=== PATIENT | female | born 1945 | race Caucasian/White ===

== ENCOUNTER → 2018-02-05 | Outpatient (CLI) | payer OTHER ==
[~2018-02-05] MED LIST: ALPRAZOLAM PO; ALPRAZOLAM0.5 M1 PO; AMLODIPINE PO; ASPIRIN81 MG PO; CARVEDILOL3.125 MG PO; CREON DR 12,001 EACH PO; CRESTOR10 MG; DIOVAN80 MG PO; ESTRADIOL1 MG PO; GLIMEPIRIDE2 MG PO; LEVOTHYROXINE25 MCG PO; LEVOTHYROXINE50 MCG PO; LOPID600 MG PO; LOSARTAN POTAS100 MG PO; METFORMIN HCL500 M2 PO; METFORMIN HCL500 MG PO; MYRBETRIQ25 MG PO; NIFEDIPINE ER30 M1 PO; NITROFURANTOIN100 MG PO; PANTOPRAZOLE SO40 MG PO; PREMARIN0.625 MG PO; PRENATAL VIT PO; TEMAZEPAM PO; [UNRECOGNIZED DRUG - OTHER]
--- NOTE | 2018-02-05 11:52 | Diagnostic Imaging Report ---
PROCEDURE:TOES LEFT MIN 2 VIEWS TECHNIQUE:AP, lateral and oblique views left foot INDICATION:Osteomyelitis of the second digit COMPARISON:None. FINDINGS: Postoperative changes of bunionectomy and hallux valgus repair. Intact hardware. Generalized osteopenia. Healed fracture of the second toe metatarsal mid shaft. No focal erosion or periosteal reaction. Image regional skeleton intact. CONCLUSION: No evidence of acute osteomyelitis. Osteopenia. Dictated by: Clarence Malone M.D. on 02/05/2018 at 11:51 Electronically approved by: Clarence Malone M.D. on 02/05/2018 at 11:51
== END ==
LOC: RAD 11:08
PROVIDERS: ATTEND Internal Medicine Infectious Disease
DX: M86.8X7 Other osteomyelitis, ankle and foot (principal)

== ENCOUNTER → 2018-02-06 | Outpatient (CLI) | payer OTHER | LOC: MRI 08:34 | PROVIDERS: ATTEND Internal Medicine Infectious Disease | DX: M86.8X7 Other osteomyelitis, ankle and foot (principal) ==

== ENCOUNTER → 2018-03-25 | Emergency (ER) | payer OTHER ==
[~2018-03-25] VITALS: Ht 157.5 cm; Wt 67.6 kg
--- OUTSIDE RECORDS SUMMARY | 2018-03-25 10:05 | XMS REPORT | Clinical Summary ---
Author Author [facility] Organization [facility] Address Unknown Phone Unavailable Care Team Providers Care Program Review Director Name Role Phone Leo Dangelo MD PCP Allergies Active Allergy Reactions Severity Noted Date Comments Amoxicillin 04/12/2017 Amoxicillin-Pot Rash Low 07/06/2016 Clavulanate Bacitracin Rash Low 07/06/2016 Hydrocodone Rash Low 07/06/2016 Levofloxacin Hives, Itching High 07/06/2016 Current Medications Prescription Sig. Disp. Refills Start End Date Status Date gemfibrozil (LOPID) 600 Take 600 mg by mouth 2 Active MG tablet (two) times a day before meals. metFORMIN (GLUCOPHAGE) Take 500 mg by mouth Active 500 mg tablet every evening. levothyroxine (SYNTHROID, 25 mg daily 1 06/29/20 Active LEVOXYL) 50 mcg tablet 17 VITAMIN B COMPLEX Take 1 tablet by mouth Active (B-COMPLEX ORAL) every evening. pancrelipase, Take 24,000 units of Active ctknab-jhrqbqwy-rsxvaot, lipase by mouth 3 (three) (CREON) 24,000-76,000 times a day with meals. -120,000 unit capsule,delayed release(DR/EC) capsule pantoprazole (PROTONIX) TK 1 T PO QD 2 11/21/20 Active 40 MG EC tablet 17 NIFEdipine XL (PROCARDIA Take 30 mg by mouth Active XL) 30 MG 24 hr tablet daily. losartan (COZAAR) 100 MG 1/2 tablet bid 0 12/13/19 Active tablet 18 LACTOBACILLUS ACIDOPHILUS Take 1 tablet by mouth Active (PROBIOTIC ORAL) daily. risperiDONE (RisperDAL) Take 1 tablet (0.25 mg 30 tablet 3 01/09/20 Active 0.25 MG tablet total) by mouth nightly. 18 traZODone (DESYREL) 50 MG TAKE 1 TABLET(50 MG) BY 90 tablet 0 Active tablet MOUTH EVERY NIGHT 18 donepezil (ARICEPT) 5 MG TAKE 1 TABLET(5 MG) BY 90 tablet 1 01/23/20 Active tablet MOUTH EVERY NIGHT 18 cefuroxime (CEFTIN) 250 0 01/09/20 Active MG tablet 18 memantine (NAMENDA) 5 MG Take 1 tab by mouth daily 28 tablet 0 Active tablet for seven days then 18 increase to 2 tabs by mouth estradiol (ESTRACE) 1 MG TK 1 T PO QD 5 06/03/20 09/06/20 Discontin tablet 16 17 ued levothyroxine (SYNTHROID, TK 1 T PO D 1 06/29/20 05/04/20 Discontin LEVOTHROID) 50 MCG tablet 16 17 ued CREON 12,000-38,000 TK 1 C PO TID 5 06/05/20 10/15/20 Discontin -60,000 unit 16 17 ued capsule,delayed release(DR/EC) capsule pantoprazole (PROTONIX) TK 1 T PO QD 2 06/22/20 10/15/20 Discontin 40 MG EC tablet 16 17 ued ALPRAZolam (XANAX) 0.5 MG TK .5 T PO QD PRN 0 05/15/20 10/15/20 Discontin tablet 16 17 ued NIFEdipine XL (PROCARDIA Take 30 mg by mouth 2 04/12/20 Discontin XL) 30 MG 24 hr tablet (two) times a day. 17 ued losartan (COZAAR) 100 MG Take 50 mg by mouth 2 10/15/20 Discontin tablet (two) times a day. 17 ued mirabegron (MYRBETRIQ) 25 Take 1 tablet (25 mg 60 tablet 5 01/17/20 09/06/20 Discontin mg tablet extended total) by mouth 2 (two) 17 17 ued release 24 hr times a day. nitrofurantoin, Take 1 capsule (100 mg 30 capsule 3 02/14/20 Discontin macrocrystal-monohydrate, total) by mouth daily for 17 17 ued (MACROBID) 100 MG capsule 120 days. sulfamethoxazole-trimetho Take 1 tablet by mouth 30 tablet 3 02/28/20 03/29/20 prim (BACTRIM SS) 400-80 daily for 30 days. 17 17 mg per tablet NIFEdipine CC (ADALAT CC) Take 30 mg by mouth 2 03/05/20 10/15/20 Discontin 30 MG 24 hr tablet (two) times a day. 17 17 ued nitrofurantoin, Take 1 capsule (100 mg 30 capsule 11 03/16/20 Discontin macrocrystal-monohydrate, total) by mouth daily for 17 17 ued (MACROBID) 100 MG capsule 30 days. sulfamethoxazole-trimetho Take 1 tablet by mouth 2 14 tablet 0 03/29/20 Discontin prim (BACTRIM DS) 800-160 (two) times a day for 7 17 17 ued mg per tablet days. sulfamethoxazole-trimetho 04/01/20 07/17/20 Discontin prim (BACTRIM SS) 400-80 17 17 ued mg per tablet traMADol (ULTRAM) 50 mg Take 1 tablet (50 mg 30 tablet 0 04/20/20 tablet total) by mouth every 6 17 17 (six) hours as needed for moderate pain for up to 7 days. mirabegron (MYRBETRIQ) 25 Take 1 tablet (25 mg 30 tablet 6 04/25/20 05/04/20 Discontin mg tablet extended total) by mouth daily. 17 17 ued release 24 hr VITAMIN B COMPLEX (B Take 1 tablet by mouth 10/15/20 Discontin COMPLEX ORAL) daily. 17 ued sertraline (ZOLOFT) 50 MG Take 1 tablet (50 mg 30 tablet 11 05/04/20 12/14/19 Discontin tablet total) by mouth every 17 18 ued morning. nitrofurantoin TK 1 C PO BID FOR 10 DAYS 0 05/14/20 09/06/20 Discontin (MACRODANTIN) 100 MG 17 17 ued capsule nitrofurantoin, 3 05/02/20 07/17/20 Discontin macrocrystal-monohydrate, 17 17 ued (MACROBID) 100 MG capsule mirabegron (MYRBETRIQ) 25 Take 1 tablet (25 mg 60 tablet 11 06/25/20 10/15/20 Discontin mg tablet extended total) by mouth 2 (two) 17 17 ued release 24 hr times a day. mirabegron 25 mg tablet Take 25 mg by mouth 2 01/03/20 Discontin extended release 24 hr (two) times a day. 18 ued pancrelipase, Take 1 capsule by mouth 01/03/20 Discontin ogvlri-azwlddxn-dqsbwsg, with snacks for snacks. 18 ued (CREOND) 12,000-38,000 -60,000 unit capsule,delayed release(DR/EC) capsule ALPRAZolam (XANAX) 0.5 MG Take 0.25 mg by mouth 12/26/19 Discontin tablet nightly. 18 ued nitrofurantoin, Take 100 mg by mouth 2 10/11/20 10/21/20 macrocrystal-monohydrate, (two) times a day. For 10 17 (MACROBID) 100 MG capsule days,starting on 10/11/2017 traMADol (ULTRAM) 50 mg Take 1 tablet (50 mg 16 tablet 0 10/15/20 tablet total) by mouth every 6 17 17 (six) hours as needed for moderate pain for up to 4 days. sucralfate (CARAFATE) 100 Take 10 mL (1 g total) by 280 mL 0 10/15/20 10/22/20 mg/mL suspension mouth 4 (four) times a 17 17 day for 7 days. ondansetron (ZOFRAN, Take 1 tablet (4 mg 20 tablet 0 10/15/20 HYDROCHLORIDE,) 4 MG total) by mouth every 8 17 17 tablet (eight) hours as needed for nausea or vomiting for up to 5 days. cephalexin (KEFLEX) 500 Take 1 capsule (500 mg 20 capsule 0 11/06/20 11/11/20 MG capsule total) by mouth 4 (four) 17 17 times a day for 5 days. cefdinir (OMNICEF) 300 MG Take 1 capsule (300 mg 10 capsule 0 11/27/19 capsule total) by mouth 2 (two) 17 18 times a day for 5 days. ACCU-CHEK MAUDE PLUS TEST U UTD BID 3 09/07/20 01/03/20 Discontin STRP strip test strips 17 18 ued nitrofurantoin TK 1 C PO BID FOR 10 DAYS 0 10/11/20 12/14/19 Discontin (MACRODANTIN) 100 MG 17 18 ued capsule sulfamethoxazole-trimetho TK 1 T PO BID FOR 10 DAYS 0 11/02/20 Discontin prim (BACTRIM DS) 800-160 17 18 ued mg per tablet cefpodoxime (VANTIN) 200 Take 1 tablet (200 mg 14 tablet 0 12/11/19 12/18/19 MG tablet total) by mouth 2 (two) 18 18 times a day for 7 days. losartan (COZAAR) 50 MG Take 50 mg by mouth 12/26/19 Discontin tablet daily. PATIENT TAKES THIS 18 ued MED AT NOON AND BEDTIME. risperiDONE (RisperDAL) Take 1 tablet (0.25 mg 60 tablet 0 12/17/19 01/03/20 Discontin 0.25 MG tablet total) by mouth 2 (two) 18 18 ued times a day for 30 days. donepezil (ARICEPT) 5 MG Take 1 tablet (5 mg 30 tablet 0 12/17/19 Discontin tablet total) by mouth nightly 18 18 ued for 30 days. traZODone (DESYREL) 50 MG Take 1 tablet (50 mg 30 tablet 0 12/17/19 01/09/20 Discontin tablet total) by mouth nightly 18 18 ued for 30 days. NIFEdipine CC (ADALAT CC) TK 1 T PO BID 0 12/13/19 12/26/19 Discontin 30 MG 24 hr tablet 18 18 ued cefpodoxime (VANTIN) 100 Take 1 tablet (100 mg 14 tablet 0 12/26/19 12/26/19 Discontin MG tablet total) by mouth 2 (two) 18 18 ued times a day for 7 days. cefpodoxime (VANTIN) 100 Take 1 tablet (100 mg 14 tablet 0 12/26/19 01/02/20 MG tablet total) by mouth 2 (two) 18 18 times a day for 7 days. risperiDONE (RisperDAL) Take 1 tablet (0.25 mg 60 tablet 2 01/03/20 01/09/20 Discontin 0.25 MG tablet total) by mouth nightly. 18 18 ued traZODone (DESYREL) 50 MG Take 1 tablet (50 mg 30 tablet 0 01/09/20 01/09/20 Discontin tablet total) by mouth nightly 18 18 ued for 30 days. donepezil (ARICEPT) 10 MG Take 1 tablet (10 mg 30 tablet 3 01/09/20 02/15/20 Discontin tablet total) by mouth nightly. 18 18 ued donepezil (ARICEPT) 5 MG Take 1 tablet (5 mg 30 tablet 1 01/23/20 Discontin tablet total) by mouth nightly. 18 18 ued doxycycline (MONODOX) 100 TK 1 C PO BID 0 02/01/20 02/19/20 Discontin MG capsule 18 18 ued terconazole (TERAZOL 7) Insert 1 applicator into 45 g 0 02/15/20 0.4 % vaginal cream the vagina nightly for 7 18 18 days. memantine (NAMENDA 5 mg/day for=1 week; 5 mg 49 tablet 0 02/19/20 Discontin TITRATION PACK) 5-10 mg twice daily for=1 week; 18 18 ued tablet pack 15 mg/day given in 5 mg and 10 mg doses for=1 week; then 10 mg twice daily fluconazole (DIFLUCAN) Take 1 tablet (150 mg 1 tablet 1 03/19/20 150 MG tablet total) by mouth once for 18 18 1 dose. Hospital, Clinic, or Ordered Dose Route Frequency Start End Date Status Other Facility Date Administered Medication gentamicin (GARAMYCIN) 480 mg IM once 11/27/19 11/27/19 Ended injection 480 18 18 mgIndications: Frequent UTI Active Problems Problem Noted Date Delusional disorder 01/03/2018 Dehydration 12/26/2017 High anion gap metabolic acidosis 12/25/2017 Hypercalcemia 12/25/2017 Elevated CPK 12/25/2017 Recurrent UTI 12/25/2017 Altered mental status 12/24/2017 Breast mass 12/15/2017 Overview: benign Delirium 12/14/2017 Essential hypertension 05/05/2017 Hypothyroidism due to acquired atrophy of thyroid 05/05/2017 Diabetic peripheral neuropathy 05/05/2017 Mixed anxiety depressive disorder 03/29/2017 Mild cognitive impairment 03/29/2017 Chronic pancreatitis 03/29/2017 Type 2 diabetes mellitus 03/29/2017 Mixed incontinence 07/06/2016 Resolved Problems Problem Noted Date Resolved Date Dementia 12/15/2017 12/24/2017 Idiopathic peripheral neuropathy 03/29/2017 05/05/2017 Encounters Date Type Specialty Care Team Description 03/19/2018 Telephone Obstetrics and Gynecology Lily Whitten RN 03/12/2018 Telephone Neurology MkMatty phamah 02/27/2018 Documentation Neurology Everette Santacruz MD 02/27/2018 Telephone Obstetrics and Gynecology Satnam Quezada MA 02/26/2018 Documentation Neurology Mendy Phan MA 02/26/2018 Telephone Obstetrics and Gynecology Lily Whitten RN 02/20/2018 Refill Neurology Everette Santacruz MD 02/20/2018 Refill Neurology Mendy Phan MA 02/18/2018 Telephone Obstetrics and Gynecology Satnam Quezada MA 02/18/2018 Documentation Neurology Mendy Phan MA 02/18/2018 Orders Only Neurology Mendy Phan MA 02/14/2018 Office Visit Obstetrics and Gynecology Elizabeth Hill MD Wellness examination (Primary Dx); Screening for cervical cancer; Vaginal itching 02/06/2018 Telephone Neurology PamellaMattyah 01/23/2018 Refill Neurology Everette Santacruz MD 01/23/2018 Refill Neurology Mendy Phan MA 01/09/2018 Refill Everette Flores MD 01/09/2018 Refill Neurology Mendy Phan MA 01/09/2018 Documentation Neurology Mendy Phan MA update 01/07/2018 Orders Only Neurology Mendy Phan MA MCI (mild cognitive impairment) (Primary Dx) 01/04/2018 Clinical Urology History of recurrent UTIs Support (Primary Dx) 01/04/2018 Telephone Urology Jeannine John MD 01/03/2018 Office Visit Neurology Everette Santacruz MD Mild cognitive impairment (Primary Dx); Diabetic peripheral neuropathy; Mixed anxiety depressive disorder; Delusional disorder 12/24/2017 Emergency General Internal Medicine Adriana Laurent MD Altered mental status, - Alexis Honeycutt DO unspecified altered 12/26/2017 mental status type (Primary Dx); Dehydration; Hypothyroidism due to acquired atrophy of thyroid; Gastroesophageal reflux disease without esophagitis; Mixed anxiety depressive disorder; Chronic pancreatitis, unspecified pancreatitis type; Essential hypertension; No contraindication to deep vein thrombosis (DVT) prophylaxis; Hyperlipidemia, unspecified hyperlipidemia type 12/17/2017 Patient Quality Mayra Solorzano RN Outreach 12/14/2017 [facility] General Internal Medicine Yahaira Infante MD Delirium (Primary Dx); - Encounter Yaya Louie MD Altered mental status, 12/17/2017 Hunter Medina DO unspecified altered mental status type 12/10/2017 Telephone Urology Jeannine John MD 12/07/2017 Telephone Urology Jeannine John MD 12/03/2017 Emergency [facility] Anamaria Guaiac positive stools (Primary Dx); Renal insufficiency 11/27/2017 Office Visit UrologJeannine Evans MD Frequent UTI ( Primary Dx); Urinary frequency 11/23/2017 Telephone UrologJeannine Evans MD 11/22/2017 Refill Urology Jeannine John MD 11/06/2017 Telephone Urology Jeannine John MD 11/06/2017 Telephone Urology Jeannine John MD 10/16/2017 Telephone Urology Jeannine John MD 10/15/2017 Emergency Emergency Medicine Rehrer, Yonas Alberto DO Chronic pancreatitis, unspecified pancreatitis type (Primary Dx); Abdominal pain, unspecified abdominal location 10/02/2017 Telephone Jeannine Bennett MD 09/06/2017 Office Visit Neurology Everette Santacruz MD Diabetic peripheral neuropathy (Primary Dx); Mixed anxiety depressive disorder; Mild cognitive impairment 08/20/2017 Telephone Jeannine Bennett MD 07/17/2017 Office Visit Urology Jeannine John MD Frequent UTI ( Primary Dx); Urinary frequency; History of kidney stones 07/11/2017 Telephone UrologJeannine Evans MD 06/25/2017 Telephone Urology Jeannine John MD 05/30/2017 Telephone Neurology Roslyn Can 05/17/2017 Office Visit Urology Jeannine John MD Frequent UTI ( Primary Dx); Urinary frequency; History of kidney stones 05/04/2017 Office Visit Neurology Everette Santacruz MD Minimal cognitive impairment (Primary Dx); Mixed anxiety depressive disorder; Diabetic peripheral neuropathy 05/01/2017 Telephone Jeannine Bennett MD 05/01/2017 Orders Only Urology Jeannine John MD 04/25/2017 Telephone UrologJeannine Evans MD 04/20/2017 Hospital Urology Jeannine John MD Encounter 04/20/2017 Procedure Pass Urology 04/20/2017 Surgery Urology Jeannine John MD RIGHT ESWL 04/12/2017 Hospital Radiology Everette Santacruz MD Cerebral atherosclerosis Encounter 04/12/2017 Anesthesia Urology Nicole Capps, OVERWEAVER Event 04/12/2017 Orders Only Urology Anna Heard MA Kidney stone ( Primary Dx) 04/06/2017 Office Visit Neuropsychology Everette Santacruz MD Memory loss Linda Barlow, PhD 04/04/2017 Office Visit Urology Jeannine John MD Kidney stones ( Primary Dx); Frequent UTI; Urinary frequency 03/30/2017 [facility] 03/29/2017 Lab Lab Everette Santacruz MD MCI (mild cognitive impairment) with memory loss (Primary Dx); Depression with anxiety; Idiopathic peripheral neuropathy; Chronic pancreatitis, unspecified pancreatitis type; Diabetic polyneuropathy associated with other specified diabetes mellitus 03/29/2017 Office Visit Neurology Everette Santacruz MD Minimal cognitive impairment (Primary Dx); Mixed anxiety depressive disorder; Idiopathic peripheral neuropathy; Idiopathic chronic pancreatitis; Type 2 diabetes mellitus with diabetic polyneuropathy, without long-term current use of insulin 03/29/2017 [facility] Radiology Jeannine John MD Urinary tract infection Encounter with hematuria, site unspecified; Incomplete bladder emptying; Mixed incontinence 03/29/2017 Procedure Pass Radiology 03/29/2017 Orders Only Neurology [facility] Memory loss (Primary Dx ) 03/29/2017 Orders Only Neurology [facility] Cerebral atherosclerosis (Primary Dx) 03/29/2017 Orders Only Urology Jeannine John MD Urinary tract infection with hematuria, site unspecified (Primary Dx); Incomplete bladder emptying; Mixed incontinence 03/26/2017 Orders Only Jeannine Bennett MD 03/26/2017 Telephone Jeannine Bennett MD 03/26/2017 Telephone Jeannine Bennett MD 03/26/2017 Transcribe Access Jeannine John MD Urinary tract infection, Orders site not specified (Primary Dx) 03/26/2017 Orders Only Urology Jeannine John MD Urinary tract infection, site unspecified (Primary Dx) after 03/24/2017 Family History Medical History Relation Name Comments Heart disease Father Heart disease Mother Relation Name Status Comments Father Mother Social History Tobacco Use Types Packs/Day Years Used Date Former Smoker Cigarettes Quit: 1981 Smokeless Tobacco: Never Used Tobacco Cessation: Counseling Given: No Comments: quit 1985 Alcohol Use Drinks/Week oz/Week Comments No Sex Assigned at Date Recorded Not on file Last Filed Vital Signs Vital Sign Reading Time Taken Blood Pressure 154/78 02/14/2018 1:48 PM CDT Pulse 80 02/14/2018 1:48 PM CDT Temperature 35.6 C (96.1 F) 12/26/2017 7:17 AM PRACTICE PERFORMANCE MANAGER Respiratory Rate 18 12/26/2017 7:17 AM PRACTICE PERFORMANCE MANAGER Oxygen Saturation 96% 12/26/2017 11:12 AM PRACTICE PERFORMANCE MANAGER Inhaled Oxygen - - Concentration Weight 50.8 kg (112 lb) 02/14/2018 1:48 PM CDT Height 154.9 cm (5' 1") 02/14/2018 1:48 PM CDT Body Mass Index 21.16 02/14/2018 1:48 PM CDT Plan of Treatment Date Type Specialty Care Team Description 04/11/2018 Office Visit Neurology Everette Santacruz MD [address] [address] Health Maintenance Due Date Last Done Comments FOOT EXAM 1957 OPHTHALMOLOGY EXAM 1957 URINE MICROALBUMIN 1957 COLONOSCOPY 1997 MAMMOGRAM 1997 SHINGRIX VACCINE (#1) 1997 ZOSTER VACCINE 2007 PNEUMOCOCCAL 2012 POLYSACCHARIDE VACCINE AGE 65 AND OVER PNEUMOCOCCAL-13 2012 INFLUENZA VACCINE 06/26/2018 Implants Implanted Type Area [employer] Device Expiration Model / Identifier Date Serial / Lot Hip Implant Hip Replacement-12/14/2014 Implanted: 12/14/2014 (Quantity not on file) Procedures Procedure Name Priority Date/Time Associated Diagnosis Comments WI CRITICAL CARE, E/M Routine 12/25/2017 Results for this 30-74 MINUTES 8:46 AM PRACTICE PERFORMANCE MANAGER procedure are in the results section. WI AN ELECTIVE Routine 04/20/2017 SUPRAGLOTTIC AIRWAY 2:10 PM CDT Procedure Note - Julia Kishor Enola, CERTIFIED JUVENILE PROBATION OFFICER - 04/20/2017 2:10 PM CDT Airway Date/Time: 04/20/2017 2:10 PM Performed by: KISHOR EDWARDS Authorized by: NIA STEVENSON Location: OR Urgency: Elective Difficult Airway: No Resident/C RNA: KISHOR EDWARDS Performed by: resident/C RNA Preoxygena brian with 100% O2: Yes C-spine Precaution s Maintained Throughout : Yes Mask Ventilatio n: Easy mask Final Airway Type: Supraglott ic airway Final LMA: Classic LMA Size: 4 Number of Attempts at Approach: 1 RIGHT ESWL 04/20/2017 RIGHT RENAL STONE N20.0 1:30 PM CDT Special Needs T/F 1300, REQ T/F SELF after 03/24/2017 Results * SURESWAB(R), CANDIDIASIS, PCR (02/14/2018 2:34 PM) Component Value Ref Range C. albicans, DNA DETECTED (A) C. glabrata, DNA DETECTED (A) C. tropicalis, DNA NOT DETECTED C. parapsilosis, DNA NOT DETECTED Comment: REFERENCE RANGE: NOT DETECTED This test was developed and its analytical performance characteristics have been determined by [facility]. It has not been cleared or approved by FDA. This assay has been validated pursuant to the CLIA regulations and is used for clinical purposes. Specimen Performing Laboratory [facility] * SURESWAB(R) TRICHOMONAS VAGINALIS RNA, QL, TMA (Reflex) (02/14/2018 2:34 PM) Component Value Ref Range Sureswab(r) trichomonas NOT DETECTED vaginalis RNA, QL, TMA Comment: REFERENCE RANGE: NOT DETECTED This test was performed using the APTIMA(R) Trichomonas vaginalis Assay(GEN-PROBE(R)). For more information on this test, go to: http://[email or web address]/faq/Trichomo vannessa Specimen Performing Laboratory [facility] * SURESWAB(R) BACTERIAL VAGINOSIS DNA, QN, PCR (02/14/2018 2:34 PM) Component Value Ref Range BV category NOT SUPPORTIVE Lactobacillus species NOT DETECTED Log (cells/mL) Atopobium vaginae NOT DETECTED Log (cells/mL) Megasphaera species NOT DETECTED Log (cells/mL) Gardnerella vaginalis 5.2 Log (cells/mL) Comment: REFERENCE RANGE: BV Category: NOT SUPPORTIVE NOT SUPPORTIVE OF BV: The pattern of results is not supportive of a diagnosis of BV: 1) Presence of Lactobacillus spp., G. vaginalis levels less than 6.0 log cells/mL, and absence of A. vaginae and Megasphaera spp; or 2) Absence of all targeted organisms; or 3) Absence of Lactobacillus spp. plus G. vaginalis detected at levels less than 6.0 log cells/mL and absence of A. vaginae and Megasphaera spp. EQUIVOCAL FOR BV: The pattern of results is neither supportive nor not supportive of a diagnosis of BV. The patient may be in transition into or out of BV: Presence of Lactobacillus spp. plus G. vaginalis (greater or equal to 6.0 log cells/mL) and/or one of the other BV-associated pathogens. SUPPORTIVE OF BV: The pattern of results is supportive of a diagnosis of BV: Absence of Lactobacillus spp. and presence of G. vaginalis greater than or equal to 6.0 log cells/mL and/or one or both of the other BV-associated pathogens. Concentration for Lactobacilli (L. acidophilus/crispatus, L. jensenii) are collectively reported under the term "Lactobacillus spp.", as these species are among the peroxide producing Lactobacilli thought to be protective against bacterial vaginosis. Atopobium vaginae, Megasphaera spp., and Gardnerella (greater than 6.0 log cells/mL) have been associated with vaginosis when present in the absence of peroxidase producing Lactobacilli. This test was developed and its analytical performance characteristics have been determined by [facility]. It has not been cleared or approved by FDA. This assay has been validated pursuant to the CLIA regulations and is used for clinical purposes. Specimen Performing Laboratory [facility] * THINPREP TIS PAP REFLEX HPV mRNA E6/E7 (02/14/2018 2:34 PM) Component Value Ref Range Clinical information None given Date of last menstrual NONE GIVEN period Prev. pap: NONE GIVEN Prev. bx: NONE GIVEN Source Comment: Vaginal cuff Statement of adequacy Comment: Satisfactory for evaluation. Endocervical/transformation zone component absent. Interpretation/result: Comment: Negative for intraepithelial lesion or malignancy. Comment Comment: This Pap test has been evaluated with computer assisted technology. Negative Cutter Comment: LANEG, CT(ASCP) CT screening location: [place] [address] [address], [place] [address] Comment Comment: EXPLANATORY NOTE: The Pap is a screening test for cervical cancer. It is not a diagnostic test and is subject to false negative and false positive results. It is most reliable when a satisfactory sample, regularly obtained, is submitted with relevant clinical findings and history, and when the Pap result is evaluated along with historic and current clinical information. Specimen Performing Laboratory Swab [facility] * Urine culture (01/04/2018 11:20 AM) Only the most recent of 6 results within the time period is included. Component Value Ref Range Urine culture SEE NOTE Comment: CULTURE, URINE, ROUTINE MICRO NUMBER: [id number] TEST STATUS: FINAL SPECIMEN SOURCE: URINE SPECIMEN QUALITY: ADEQUATE RESULT: Multiple organisms present, each less than 10,000 CFU/mL. These organisms, commonly found on external and internal genitalia, are considered to be colonizers. No further testing performed. Specimen Performing Laboratory Urine [facility] * Urine protein electrophoresis, 24 hour (12/26/2017 10:59 AM) Component Value Ref Range Collection start date, 12/25/17 urine Collection start time, 740am urine Collection stop date, 12/26/17 urine Collection stop time, 740am urine Hours of collection 24 Total volume, urine 1,450 mL Urine protein 10 mg/dL concentration Urine protein 24 hr 145 0 - 150 mg/vol excretion UPE albumin 76.2 % UPE globulin 23.8 % UPE extended See CommentComment: A normal 24 hour urine protein interpretation study without clinical proteinuria. UPE interpretation See CommentComment: Collette Rico MD; Bernice Gilbert, PhD; Carolyn Bear MD Specimen Performing Laboratory Urine [facility] DEPARTMENT OF PATHOLOGY AND GENOMIC MEDICINE [address] [place], [place] [id number] * POC glucose (12/26/2017 8:20 AM) Only the most recent of 19 results within the time period is included. Component Value Ref Range POC glucose 104 (H) 65 - 99 mg/dL Comment: [facility] Notified RN Meter ID: [id number] Button Cutting Machine Operator: Carlene Tong Specimen Performing Laboratory [facility] DEPARTMENT OF PATHOLOGY AND GENOMIC MEDICINE [address] [place] [address] * Estimated GFR (12/26/2017 5:53 AM) Only the most recent of 8 results within the time period is included. Component Value Ref Range GFR Non Af Amer 62 mL/min/1.73 m2 GFR Af Amer 75 mL/min/1.73 m2 Comment: Chronic kidney disease: <60 mL/min/1.73m2 Kidney failure: <15 mL/min/1.73m2 The estimated GFR is calculated from the IDMS-traceable Modification of Diet in Renal Disease Equation. The accuracy of the calculation is poor when the creatinine is normal. Calculated values >90 mL/min/1.73m2 are not reported. This equation has not been validated in children (<18 years), women, the elderly (>70 years), or ethnic groups other than Caucasians and Americans. Specimen Performing Laboratory Plasma specimen [facility] DEPARTMENT OF PATHOLOGY AND GENOMIC MEDICINE [address] [place] [address] * CBC with platelet and differential (12/26/2017 5:53 AM) Only the most recent of 9 results within the time period is included. Component Value Ref Range WBC 5.34 4.50 - 11.00 k/uL RBC 3.57 (L) 4.20 - 5.50 m/uL HGB 11.0 (L) 12.0 - 16.0 g/dL HCT 33.6 (L) 37.0 - 47.0 % MCV 94.1 82.0 - 100.0 fL MCH 30.8 27.0 - 34.0 pg MCHC 32.7 31.0 - 37.0 g/dL RDW - SD 42.5 37.0 - 55.0 fL MPV 9.9 8.8 - 13.2 fL Platelet count 315 150 - 400 k/uL Nucleated RBC 0.00 /100 WBC Neutrophils 56.0 39.0 - 69.0 % Lymphocytes 32.2 25.0 - 45.0 % Monocytes 10.7 (H) 0.0 - 10.0 % Eosinophils 0.7 0.0 - 5.0 % Basophils 0.2 0.0 - 1.0 % Immature granulocytes 0.2Comment: "Immature granulocytes" 0.0 - 1.0 % (promyelocytes, myelocytes, metamyelocytes) Specimen Performing Laboratory Blood [facility] DEPARTMENT OF PATHOLOGY AND GENOMIC MEDICINE [address] [place] [id number] * Basic metabolic panel (12/26/2017 5:53 AM) Only the most recent of 5 results within the time period is included. Component Value Ref Range Sodium 144 135 - 148 mEq/L Potassium 3.6 3.5 - 5.0 mEq/L Chloride 107 98 - 112 mEq/L CO2 23 (L) 24 - 31 mEq/L Anion gap 14 7 - 15 mEq/L Comment: Starting from February , anion gap calculation no longer incorporates potassium. Please note the change. BUN 25 (H) 8 - 23 mg/dL Creatinine 0.9 0.5 - 0.9 mg/dL Glucose 101 (H) 65 - 99 mg/dL Calcium 10.1 8.8 - 10.2 mg/dL Specimen Performing Laboratory Plasma specimen [facility] DEPARTMENT OF PATHOLOGY AND GENOMIC MEDICINE [address] [place] [address] * Ionized calcium (12/25/2017 6:00 PM) Only the most recent of 2 results within the time period is included. Component Value Ref Range pH 7.45 Ionized calcium 1.18 1.11 - 1.32 mmol/L Specimen Performing Laboratory Plasma specimen [facility] DEPARTMENT OF PATHOLOGY AND [facility] MEDICINE [address] [place] [address] * US Renal (12/25/2017 9:12 AM) Specimen Performing Laboratory [facility] [address] [place] [address] Narrative EXAMINATION:US RENAL CLINICAL HISTORY:Elevated abnormal renal function tests COMPARISON:Renal ultrasound 07/27/2016, 09/12/2016. FINDINGS: The kidneys are normal in size although of increased echogenicity. There is no evidence of renal mass, calculi, or hydronephrosis. The right kidney measures 10.8 x 5.8 x 5.7 cm. The left kidney measures 10.3 x 4.9 x 5.5 cm. The urinary bladder is unremarkable. IMPRESSION: Findings consistent with medical renal disease. [facility]-[id number] Procedure Note Interface, Radiology Results Incoming - 12/25/2017 10:15 AM PRACTICE PERFORMANCE MANAGER EXAMINATION: US RENAL CLINICAL HISTORY: Elevated abnormal renal function tests COMPARISON: Renal ultrasound 07/27/2016, 09/12/2016. FINDINGS: The kidneys are normal in size although of increased echogenicity. There is no evidence of renal mass, calculi, or hydronephrosis. The right kidney measures 10.8 x 5.8 x 5.7 cm. The left kidney measures 10.3 x 4.9 x 5.5 cm. The urinary bladder is unremarkable. IMPRESSION: Findings consistent with medical renal disease. [facility]-[id number] * CRITICAL CARE (12/25/2017 8:46 AM) Narrative Adriana Laurent MD 12/25/20178:46 AM Critical Care Performed by: ADRIANA LAURENT Authorized by: ADRIANA LAURENT Critical care provider statement: Critical care time (minutes):39 Critical care time was exclusive of:Separately billable procedures and treating other patients and teaching time Critical care was necessary to treat or prevent imminent or life-threatening deterioration of the following conditions:Dehydration and SHOULDER BONER failure or compromise Critical care was time spent personally by me on the following activities:Development of treatment plan with patient or surrogate, discussions with consultants, evaluation of patient's response to treatment, examination of patient, interpretation of cardiac output measurements, obtaining history from patient or surrogate, ordering and performing treatments and interventions, ordering and review of laboratory studies, ordering and review of radiographic studies, pulse oximetry, re-evaluation of patient's condition and review of old charts Parag 'yes' if you are taking over critical care for this patient from another provider.: no Comments: Pt p/w AMS- infectious evaluation with UA/RPP/CXR neg, review of prior records shows recent head CT without pathology, review of home medications reveals multiple psychoactive and sedative-hyponotic medications that have been recently adjusted, neurology consulted, admitted to medicine for further evaluation * [place] lambda free light chain with ratio (12/25/2017 6:50 AM) Component Value Ref Range [place] light chain 32.16 (H) 3.30 - 19.40 mg/L Lambda light chain 15.67 5.70 - 26.30 mg/L [place] lambda ratio 2.05 (H) 0.26 - 1.65 Specimen Performing Laboratory Plasma specimen [facility] DEPARTMENT OF PATHOLOGY AND GENOMIC MEDICINE [address] [place] [id number] * DNA Ab screen (12/25/2017 6:50 AM) Component Value Ref Range DNA Ab screen Not Detected Not-Detected Specimen Performing Laboratory Blood [facility] DEPARTMENT OF PATHOLOGY AND GENOMIC MEDICINE [address] [place] [address]37[address] * Vitamin D 1,25 dihydroxy level, serum (12/25/2017 6:50 AM) Component Value Ref Range Vit D, 1,25-Dihydroxy 73.30 18.00 - 78.00 pg/mL Comment: This test was developed and its performance characteristics determined by the Department of Pathology and Genomic Medicine, [facility]. Serum 1,25 Dihydroxy Vitamin D is tested by LC-MS/MS. It has not been cleared or approved by FDA. The laboratory is regulated under CLIA as qualified to perform high-complexity testing. This test is used for clinical purposes. It should not be regarded as investigational or for research. Specimen Performing Laboratory Blood [facility] DEPARTMENT OF PATHOLOGY AND GENOMIC MEDICINE [address] [place] [address]47 * Vitamin D 25 hydroxy level (12/25/2017 6:50 AM) Component Value Ref Range Vitamin D, 25-hydroxy 53.8 30.0 - 150.0 ng/mL Comment: This assay reports the sum of 25-hydroxy vitamin D3 and 25-hydroxy vitamin D2. Reference range: 0-17 years: Deficiency: less than 20ng/mL Optimum level: greater than or equal to 20 ng/mL. 18 years and older: Deficiency: less than 20ng/mL Insufficiency: 20-29 ng/mL Optimum Level: 30-80 ng/mL The assay reportable range is 3.4 155.9 ng/mL. Levels higher than 150 ng/mL may be associated with toxicity. If toxicity is clinically suspected and the reported result is >155.9 ng/mL,contact lab for alternative methods to obtain a definitive level. If separate quantitation of 25-hydroxy vitamin D3 and 25-hydroxy vitamin D2 is needed, please contact lab for alternative methods. Specimen Performing Laboratory Blood [facility] DEPARTMENT OF PATHOLOGY AND GENOMIC MEDICINE [address] [place] [address] * HIV 1, 2 antibody (12/25/2017 6:50 AM) Component Value Ref Range HIV 1, 2 antibody Non-reactive Non-reactive Comment: Starting from February 22 2016, 4th generation HIV screening and confirmation assays are in use at [facility], consistent with the CDC-recommended algorithm. The screening test detects antibodies to HIV-1, HIV-2 and the p24 antigen. Positive screening results will be automatically reflexed to a HIV-1/HIV-2 differentiation assay. Indeterminant HIV-1 results will be further automatically reflexed to a nucleic acid test for detection of acute infection. Western blot will no longer be performed as a confirmation test. For a quick reference guide on the testing algorithm, please refer to: http://stacks.cdc.gov/view/cdc/63943. Specimen Performing Laboratory [facility] DEPARTMENT OF PATHOLOGY AND GENOMIC MEDICINE [address] [place] [address] * Sedimentation rate (12/25/2017 6:50 AM) Only the most recent of 2 results within the time period is included. Component Value Ref Range Sedimentation rate 48 (H) 0 - 20 mm/hr Specimen Performing Laboratory Blood [facility] DEPARTMENT OF PATHOLOGY AND [address] [address] * C-reactive protein (12/25/2017 6:50 AM) Only the most recent of 2 results within the time period is included. Component Value Ref Range CRP <0.30 0.00 - 0.50 mg/dL Specimen Performing Laboratory Plasma specimen [facility] DEPARTMENT OF PATHOLOGY AND [place] [id number] * ZIGGY (12/25/2017 6:50 AM) Only the most recent of 2 results within the time period is included. Component Value Ref Range ZIGGY screen <1:80 <1:80 Specimen Performing Laboratory Blood [facility] DEPARTMENT OF PATHOLOGY AND [address] [address] * Serum electrophoresis (12/25/2017 6:50 AM) Component Value Ref Range Protein 7.0 6.3 - 8.3 g/dL Comment: [place] 4.6-7.0 g/dL 1 week 4.4-7.6 g/dL 7 months-1year 5.1-7.3 g/dL 1-2 years 5.6-7.5 g/dL >3 years 6.0-8.0 g/dL 18-150 6.3-8.3 g/dL SPE albumin 4.38 4.00 - 5.30 g/dL SPE alpha 1 0.19 0.10 - 0.25 g/dL SPE alpha 2 0.85 (H) 0.58 - 0.84 g/dL SPE beta 0.86 0.50 - 1.10 g/dL SPE gamma 0.72 0.60 - 1.30 g/dL SPE extended See Comment interpretation Comment: Increased alpha-2 globulins may be due to increased haptoglobin in an acute phase response, increased alpha-2 macroglobulin in diabetes mellitus or may be a nonspecific finding most common in the elderly. SPE interpretation See CommentComment: Collette Rico MD; Bernice Gilbert, PhD; Carolyn Bear MD Specimen Performing Laboratory Serum [facility] DEPARTMENT OF PATHOLOGY AND GENOMIC MEDICINE [address] [place] [address] * Parathyroid hormone (12/25/2017 6:50 AM) Component Value Ref Range PTH 42 15 - 65 pg/mL Specimen Performing Laboratory [facility] DEPARTMENT OF PATHOLOGY AND GENOMIC MEDICINE [address] [place] [address] * Sodium level, urine, random (12/25/2017 2:00 AM) Component Value Ref Range Sodium, urine, random 92 mEq/L Specimen Performing Laboratory Urine [facility] DEPARTMENT OF PATHOLOGY AND [facility] MEDICINE [address] [place] [address] * Creatinine level, urine, random (12/25/2017 2:00 AM) Component Value Ref Range Creatinine, urine, random 107 mg/dL Specimen Performing Laboratory Urine [facility] [place] [address] * Urinalysis screen and microscopy, with reflex to culture (12/24/2017 5:00 PM) Only the most recent of 3 results within the time period is included. Component Value Ref Range Specimen site Clean catch Color, UA Edie Appearance, UA Hazy Specific gravity, UA 1.020 1.001 - 1.035 pH, UA 5.0 5.0 - 8.5 Protein, UA Negative Negative Glucose, UA Negative Negative Ketones, UA Negative Negative Bilirubin, UA Negative Negative Blood, UA Negative Negative Nitrite, UA Negative Negative Urobilinogen, UA <2.0 <2.0 Leukocyte esterase, UA Small (A) Negative Epithelial cells, UA 3 /HPF WBC, UA 5 (H) 0 - 4 /HPF RBC, UA 1 0 - 2 /HPF Bacteria, UA Few None seen Yeast, UA None seen Yeast with pseudohyphae, None seen UA Specimen Performing Laboratory Urine [facility] DEPARTMENT OF PATHOLOGY AND GENOMIC MEDICINE [address] [place] [address] * Gram stain (12/24/2017 5:00 PM) Component Value Ref Range Gram stain result No WBC's or organisms seen. Comment: Specimen Information Specimen Source: Urine Specimen Site: Random void Specimen Performing Laboratory Urine - Random void [facility] [place] [address] * ECG 12 lead (12/24/2017 4:47 PM) Only the most recent of 3 results within the time period is included. Component Value Ref Range Ventricular rate 82 Atrial rate 83 WI interval 166 QRSD interval 76 QT interval 382 QTC interval 446 P axis 1 66 QRS axis 1 8 T wave axis 57 EKG impression Normal sinus rhythm-Minimal voltage criteria for LVH, may be normal variant-Possible Anterior infarct , age undetermined-Abnormal ECG-In automated comparison with ECG of 03-DEC-2017 14:25,-No significant change was found- Specimen Performing Laboratory [facility] [address] [place] [address] Procedure Note Adriana Laurent MD - 12/24/2017 2:03 PM PRACTICE PERFORMANCE MANAGER Formatting of this note may be different from the original. Emergency Department Provider Note Location: [facility] MAIN ED Patient ID: Marimar Sood is a 72 y.o. female. Chief Complaint Chief Complaint Patient presents with Hallucinations History of Present Illness HPI Comments: 72 y/o female presents to the ED with a hx of UTI, HTN, and DM complains of a gradual onset of altered mental status that has been occurring for about a month now. The symptoms are described as intermittent and worsening. The episodes that the pt experiences include memory loss, confusion, agitation, and paranoia. The symptoms are worsened during the night, where she does not remember who her is and believing that he is her . The pt was seen on 12/14/2016 for the same symptoms and no formal diagnosis has been made. She was recently taken off of Xanax during the visit. The pt has been off of Zoloft 3 months ago. Patient is a 72 y.o. female presenting with altered mental status. History provided by: Relative, patient and spouse cutter operator tile used: No Altered Mental Status Duration: 1 month Timing: Intermittent Progression: Worsening Chronicity: New Severity: Moderate Presenting symptoms: behavior changes, confusion and memory loss Most recent episode: Today Episode history: Continuous Context: recent change in medication Context: not alcohol use and not assisted resident Associated symptoms: agitation and hallucinations History Allergies Allergies Allergen Reactions Levaquin [Levofloxacin] Hives and Itching Amoxicillin Augmentin [Amoxicillin-Pot Clavulanate] Rash Bacitracin Rash Hydrocodone Rash Past Medical History Past Medical History: Diagnosis Date Abnormal Pap smear of cervix Acid reflux Anesthesia nhap/nfhap - pt prefers "light anesthesia", no current cp/sob; crowns secure Breast mass benign Chronic pancreatitis 1973 on creon Dizziness states she is being worked up for this Exercises daily walks Hypertension Hypoglycemia Patient claims she gets hypoglycemic but is taking metformin Mild cognitive impairment Mixed anxiety and depressive disorder Neuropathic pain feet - DM Renal stone Type 2 diabetes mellitus Urinary incontinence Urinary tract infection Vaginal infection Wears glasses Past Surgical History Past Surgical History: Procedure Laterality Date APPENDECTOMY BLADDER SURGERY 11/11/2015 lift with no mesh SECTION 1973 COLONOSCOPY 2010 CYSTOSCOPY EXTRACORPOREAL SHOCKWAVE LITHOTRIPSY (ESWL) Right 04/20/2017 Procedure: RIGHT ESWL; Surgeon: Jeannine John MD; Location: [facility] MAIN OR; Service: Urology; Laterality: Right; HYSTERECTOMY REVISION TOTAL HIP ARTHROPLASTY Right 2014 SACROCOLPOPEXY, LAPAROSCOPIC, ROBOT-ASSISTED N/A 08/28/2016 Procedure: ROBOTIC ASSISTED LAPAROSCOPIC URETHRAL LYSIS, CYSTOSCOPY ; Surgeon : Jeannine John MD; Location: [facility] MAIN OR; Service: Urology; Laterality: N/A; TOE SURGERY Left 2010 TOTAL HIP ARTHROPLASTY Right 2007 TUBAL LIGATION Past Family History Family History Problem Relation Age of Onset Heart disease Mother Father Past Social History Social History Social History Main Topics Smoking status: Former Smoker Types: Cigarettes Quit date: 1981 Smokeless tobacco: Never Used Comment: quit 1985 Alcohol use No Drug use: No Sexual activity: Yes Partners: Male Past Social History Narrative Social History Social History Narrative Medications Current Discharge Medication List CONTINUE these medications which have NOT CHANGED Details !! losartan (COZAAR) 100 MG tablet TK 1 T PO QD Refills: 0 NIFEdipine CC (ADALAT CC) 30 MG 24 hr tablet TK 1 T PO BID Refills: 0 donepezil (ARICEPT) 5 MG tablet Take 1 tablet (5 mg total) by mouth nightly for 30 days. Qty: 30 tablet, Refills: 0 risperiDONE (RisperDAL) 0.25 MG tablet Take 1 tablet (0.25 mg total) by mouth 2 (two) times a day for 30 days. Qty: 60 tablet, Refills: 0 traZODone (DESYREL) 50 MG tablet Take 1 tablet (50 mg total) by mouth nightly for 30 days. Qty: 30 tablet, Refills: 0 !! losartan (COZAAR) 50 MG tablet Take 50 mg by mouth daily. PATIENT TAKES THIS MED AT NOON AND BEDTIME. NIFEdipine XL (PROCARDIA XL) 30 MG 24 hr tablet Take 30 mg by mouth daily. ACCU-CHEK MAUDE PLUS TEST STRP strip test strips U UTD BID Refills: 3 pantoprazole (PROTONIX) 40 MG EC tablet TK 1 T PO QD Refills: 2 ALPRAZolam (XANAX) 0.5 MG tablet Take 0.25 mg by mouth nightly. mirabegron 25 mg tablet extended release 24 hr Take 25 mg by mouth 2 (two) times a day. pancrelipase, zexion-kblbccwt-hpplvjb, (CREON) 24,000-76,000 -120,000 unit capsule,delayed release(DR/EC) capsule Take 24,000 units of lipase by mouth 3 ( three) times a day with meals. pancrelipase, fbeakq-vscpqqkb-xojzyoa, (CREOND) 12,000-38,000 -60,000 unit capsule,delayed release(DR/EC) capsule Take 1 capsule by mouth with snacks for snacks. VITAMIN B COMPLEX (B-COMPLEX ORAL) Take 1 tablet by mouth every evening. levothyroxine (SYNTHROID, LEVOXYL) 50 mcg tablet 25 mg daily Refills: 1 metFORMIN (GLUCOPHAGE) 500 mg tablet Take 500 mg by mouth every evening. gemfibrozil (LOPID) 600 MG tablet Take 600 mg by mouth 2 (two) times a day before meals. !! - Potential duplicate medications found. Please discuss with provider. Current Discharge Medication List Review of Systems Review of Systems Constitutional: Negative. HENT: Negative. Eyes: Negative. Respiratory: Negative. Cardiovascular: Negative. Gastrointestinal: Negative. Endocrine: Negative. Genitourinary: Negative. Musculoskeletal: Negative. Skin: Negative. Allergic/Immunologic: Negative. Neurological: Negative. Hematological: Negative. Psychiatric/Behavioral: Positive for agitation, confusion, dysphoric mood, hallucinations, memory loss and sleep disturbance. Negative for behavioral problems, self-injury and suicidal ideas. The patient is nervous/anxious. The patient is not hyperactive. All other systems reviewed and are negative. Physical Exam ED Triage Vitals Temp Heart Rate Respiratory Rate BP SpO2 12/24/17 1301 12/24/17 1301 12/24/17 1301 12/24/17 1301 12/24/17 1301 97.6 F 85 18 203/84 97 % Temp Source Heart Rate Source Patient Position BP Location FiO2 % 01/29/18 1301 -- 12/24/17 1301 -- -- Oral Sitting Physical Exam Constitutional: She is oriented to person, place, and time. She appears well- developed and well-nourished. HENT: Head: Normocephalic and atraumatic. Mouth/Throat: Uvula is midline and oropharynx is clear and moist. No nasal discharge, no septal abnormalities. Eyes: Conjunctivae and EOM are normal. Pupils are equal, round, and reactive to light. Neck: Trachea normal and normal range of motion. No JVD present. no lymphadenopathy. Cardiovascular: Normal rate and regular rhythm. Pulmonary/Chest: Effort normal and breath sounds normal. No respiratory distress. She has no wheezes. She has no rhonchi. She has no rales. Symmetric chest rise, clear to auscultation bilaterally. Abdominal: Soft. Bowel sounds are normal. She exhibits no distension, no abdominal bruit and no pulsatile midline mass. There is no hepatosplenomegaly. There is no tenderness. There is no rebound and no guarding. Musculoskeletal: Neurovascularly intact, FROM. No cyanosis, clubbing, or edema. +2 distal pulses bilaterally, +2 capillary refill. Neurological: She is alert and oriented to person, place, and time. Moving all extremities. CN II-XII intact. Skin: Skin is warm and dry. No rash noted. positive for normal turgor Psychiatric: The pt exudes a flat affect with a shuffling flat foot gait. Nursing note and vitals reviewed. ED Course ED Course 1809 Discussed pt's case with Dr. Honeycutt. Pt is accepted for admission. I am admitting pt for workup of delirium v.s undiagnosed dementia. He sx are c/ w dimentia with sun-downing but she carries no such diagnosis. MDM MDM Number of Diagnoses or Management Options Altered mental status, unspecified altered mental status type: new and requires workup Dehydration: new and requires workup Amount and/or Complexity of Data Reviewed Clinical lab tests: ordered and reviewed Tests in the radiology section of CPT: ordered and reviewed Tests in the medicine section of CPT: reviewed and ordered Discussion of test results with the performing providers: yes Review and summarize past medical records: yes Discuss the patient with other providers: yes Independent visualization of images, tracings, or specimens: yes Risk of Complications, Morbidity, and/or Mortality Presenting problems: high Diagnostic procedures: high Management options: high Patient Progress Patient progress: stable Labs Results for orders placed or performed during the hospital encounter of Urine culture Result Value Ref Range Urine culture isolate Insufficient growth- holding culture Gram stain Result Value Ref Range Gram stain result No WBC's or organisms seen. CBC with platelet and differential Result Value Ref Range WBC 7.44 4.50 - 11.00 k/uL RBC 3.98 (L) 4.20 - 5.50 m/uL HGB 12.2 12.0 - 16.0 g/dL HCT 36.6 (L) 37.0 - 47.0 % MCV 92.0 82.0 - 100.0 fL MCH 30.7 27.0 - 34.0 pg MCHC 33.3 31.0 - 37.0 g/dL RDW - SD 41.0 37.0 - 55.0 fL MPV 9.9 8.8 - 13.2 fL Platelet count 399 150 - 400 k/uL Nucleated RBC 0.00 /100 WBC Neutrophils 68.6 39.0 - 69.0 % Lymphocytes 22.0 (L) 25.0 - 45.0 % Monocytes 8.9 0.0 - 10.0 % Eosinophils 0.3 0.0 - 5.0 % Basophils 0.1 0.0 - 1.0 % Immature granulocytes 0.1 0.0 - 1.0 % Prothrombin time with INR Result Value Ref Range Prothrombin time 13.8 12.0 - 15.0 sec INR 1.0 Partial thromboplastin time, activated Result Value Ref Range PTT 29.5 23.0 - 36.0 sec Basic metabolic panel Result Value Ref Range Sodium 141 135 - 148 mEq/L Potassium 4.3 3.5 - 5.0 mEq/L Chloride 101 98 - 112 mEq/L CO2 23 (L) 24 - 31 mEq/L Anion gap 17 (H) 7 - 15 mEq/L BUN 40 (H) 8 - 23 mg/dL Creatinine 1.2 (H) 0.5 - 0.9 mg/dL Glucose 124 (H) 65 - 99 mg/dL Calcium 11.1 (H) 8.8 - 10.2 mg/dL Hepatic function panel Result Value Ref Range Albumin 3.9 3.5 - 5.0 g/dL Total bilirubin 0.3 0.0 - 1.2 mg/dL Bilirubin direct <0.2 0.0 - 0.3 mg/dL Alkaline phosphatase 92 35 - 104 U/L Protein 9.0 (H) 6.3 - 8.3 g/dL ALT 24 5 - 50 U/L AST 23 10 - 35 U/L Troponin Result Value Ref Range Troponin <0.30 0.00 - 0.30 ng/mL B natriuretic peptide Result Value Ref Range BNP 16 0 - 100 pg/mL Creatine kinase, total (CPK) Result Value Ref Range Creatine kinase 227 (H) 26 - 192 U/L Urinalysis screen and microscopy, with reflex to culture Result Value Ref Range Specimen site Clean catch Color, UA Edie Appearance, UA Hazy Specific gravity, UA 1.020 1.001 - 1.035 pH, UA 5.0 5.0 - 8.5 Protein, UA Negative Negative Glucose, UA Negative Negative Ketones, UA Negative Negative Bilirubin, UA Negative Negative Blood, UA Negative Negative Nitrite, UA Negative Negative Urobilinogen, UA <2.0 <2.0 Leukocyte esterase, UA Small (A) Negative Epithelial cells, UA 3 /HPF WBC, UA 5 (H) 0 - 4 /HPF RBC, UA 1 0 - 2 /HPF Bacteria, UA Few None seen Yeast, UA None seen Yeast with pseudohyphae, UA None seen Venous blood gas Result Value Ref Range pH, venous 7.35 7.32 - 7.42 pCO2, venous 43 (L) 45 - 51 mmHg pO2, venous 45 (H) 25 - 40 mmHg Base excess, venous -2 -2 - 2 meq/L O2 saturation, venous 79 (H) 40 - 70 % Bicarbonate, venous 23.0 21.0 - 28.0 mmol/L Thyroid stimulating hormone Result Value Ref Range TSH 2.00 0.27 - 4.20 uIU/mL Estimated GFR Result Value Ref Range GFR Non Af Amer 44 (A) mL/min/1.73 m2 GFR Af Amer 54 (A) mL/min/1.73 m2 T4, free Result Value Ref Range T4, free 1.6 0.9 - 1.7 ng/dL Sodium level, urine, random Result Value Ref Range Sodium, urine, random 92 mEq/L Creatinine level, urine, random Result Value Ref Range Creatinine, urine, random 107 mg/dL [place] lambda free light chain with ratio Result Value Ref Range [place] light chain 32.16 (H) 3.30 - 19.40 mg/L Lambda light chain 15.67 5.70 - 26.30 mg/L [place] lambda ratio 2.05 (H) 0.26 - 1.65 C-reactive protein Result Value Ref Range CRP <0.30 0.00 - 0.50 mg/dL Sedimentation rate Result Value Ref Range Sedimentation rate 48 (H) 0 - 20 mm/hr Ionized calcium Result Value Ref Range pH 7.40 Ionized calcium 1.28 1.11 - 1.32 mmol/L Serum electrophoresis Result Value Ref Range Protein 7.0 6.3 - 8.3 g/dL Parathyroid hormone Result Value Ref Range PTH 42 15 - 65 pg/mL POC glucose Result Value Ref Range POC glucose 216 (H) 65 - 99 mg/dL POC glucose Result Value Ref Range POC glucose 95 65 - 99 mg/dL ECG 12 lead Result Value Ref Range Ventricular rate 82 Atrial rate 83 WI interval 166 QRSD interval 76 QT interval 382 QTC interval 446 P axis 1 66 QRS axis 1 8 T wave axis 57 EKG impression Normal sinus rhythm-Minimal voltage criteria for LVH, may be normal variant- Possible Anterior infarct , age undetermined-Abnormal ECG-In automated comparison with ECG of 03-DEC-2017 14:25,-No significant change was found- Radiology Xr Chest 2 Vw Result Date: 12/24/2017 Narrative: EXAM: Chest PA and lateral. INDICATION: Fever. COMPARISON: Chest AP dated 12/14/2017. IMPRESSION: Unchanged since 12/14/2027 without evidence of acute cardiopulmonary abnormality. Heart size is normal. Moderate atherosclerosis aortic arch. Minimal right convex curvature mid thoracic spine. Moderate degenerative changes thoracic spine. Procedures ECG 12 lead Date/Time: 12/24/2017 4:51 PM Performed by: ADRIANA LAURENT Authorized by: ADRIANA LAURENT ECG reviewed by ED Physician in the absence of a home health care physician: yes Previous ECG: Previous ECG: Unavailable Interpretation: Interpretation: non-specific Rate: ECG rate: 82 ECG rate assessment: normal Rhythm: Rhythm: sinus rhythm Ectopy: Ectopy: none QRS: QRS axis: Normal QRS intervals: Normal Conduction: Conduction: normal ST segments: ST segments: Normal T waves: T waves: normal Q waves: Q waves: V1 and V2 Critical Care Performed by: ADRIANA LAURENT Authorized by: ADRIANA LAURENT Critical care provider statement: Critical care time (minutes): 39 Critical care time was exclusive of: Separately billable procedures and treating other patients and teaching time Critical care was necessary to treat or prevent imminent or life-threatening deterioration of the following conditions: Dehydration and SHOULDER BONER failure or compromise Critical care was time spent personally by me on the following activities: Development of treatment plan with patient or surrogate, discussions with consultants, evaluation of patient's response to treatment, examination of patient, interpretation of cardiac output measurements, obtaining history from patient or surrogate, ordering and performing treatments and interventions, ordering and review of laboratory studies, ordering and review of radiographic studies, pulse oximetry, re-evaluation of patient's condition and review of old charts Parag 'yes' if you are taking over critical care for this patient from another provider.: no Comments: Pt p/w AMS- infectious evaluation with UA/RPP/CXR neg, review of prior records shows recent head CT without pathology, review of home medications reveals multiple psychoactive and sedative-hyponotic medications that have been recently adjusted, neurology consulted, admitted to medicine for further evaluation Differential Diagnoses This patient has a differential diagnosis of included but not limited to hydrocephalus, medication withdrawal, medication adverse effect, UTI, dehydration, hyponatremia, delirium, and dementia. Final Diagnoses Final diagnoses: Altered mental status, unspecified altered mental status type Dehydration Disposition This patient has a disposition of Transfer to Another Facility. Disposition: Admission Condition: Serious Patient Progress: Unchanged Risk of complications, morbidity, or mortality is: Presenting problems: high Diagnostic procedures: high Management options: high ED Attestations Scribe Attestation: This document is recorded by Jessica Shelton acting as a scribe under the direction and presence of ADRIANA LAURENT. Provider attestation of scribe: Adriana Laurent: I personally performed the services recorded by the scribe in my presence. I confirm the scribe's documentation has been reviewed by me to accurately record my work, treatment, procedures, and medical decision making. INTERPRETATIONS OF LABS AND IMAGING Labs Reviewed CBC WITH PLATELET AND DIFFERENTIAL - Abnormal; Notable for the following: Result Value RBC 3.98 (*) HCT 36.6 (*) Lymphocytes 22.0 (*) All other components within normal limits BASIC METABOLIC PANEL - Abnormal; Notable for the following: CO2 23 (*) Anion gap 17 (*) BUN 40 (*) Creatinine 1.2 (*) Glucose 124 (*) Calcium 11.1 (*) All other components within normal limits HEPATIC FUNCTION PANEL - Abnormal; Notable for the following: Protein 9.0 (*) All other components within normal limits CREATINE KINASE, TOTAL (CPK) - Abnormal; Notable for the following: Creatine kinase 227 (*) All other components within normal limits URINALYSIS SCREEN AND MICROSCOPY, WITH REFLEX TO CULTURE - Abnormal; Notable for the following: Leukocyte esterase, UA Small (*) WBC, UA 5 (*) All other components within normal limits VENOUS BLOOD GAS - Abnormal; Notable for the following: pCO2, venous 43 (*) pO2, venous 45 (*) O2 saturation, venous 79 (*) All other components within normal limits ESTIMATED GFR - Abnormal; Notable for the following: GFR Non Af Amer 44 (*) GFR Af Amer 54 (*) All other components within normal limits [place] FREE LIGHT CHAIN WITH RATIO - Abnormal; Notable for the following: [place] light chain 32.16 (*) [place] lambda ratio 2.05 (*) All other components within normal limits SEDIMENTATION RATE - Abnormal; Notable for the following: Sedimentation rate 48 (*) All other components within normal limits POC GLUCOSE - Abnormal; Notable for the following: POC glucose 216 (*) All other components within normal limits URINE CULTURE GRAM STAIN BLOOD CULTURE, AEROBIC & ANAEROBIC RESPIRATORY PATHOGEN PANEL SPUTUM CULTURE PROTHROMBIN TIME WITH INR PARTIAL THROMBOPLASTIN TIME (PTT) TROPONIN B NATRIURETIC PEPTIDE THYROID STIMULATING HORMONE T4, FREE SODIUM LEVEL, URINE, RANDOM CREATININE LEVEL, URINE, RANDOM C-REACTIVE PROTEIN IONIZED CALCIUM SERUM ELECTROPHORESIS PARATHYROID HORMONE TROPONIN VITAMIN B12 LEVEL FOLATE LEVEL THYROID STIMULATING HORMONE T4, FREE URINALYSIS SCREEN AND MICROSCOPY, WITH REFLEX TO CULTURE CBC WITH PLATELET AND DIFFERENTIAL BASIC METABOLIC PANEL ESTIMATED GFR HIV 1, 2 ANTIBODY URINE PROTEIN ELECTROPHORESIS, 24 HOUR IONIZED CALCIUM PARATHYROID HORMONE VITAMIN D 1,25 DIHYDROXY LEVEL, SERUM CREATINE KINASE, TOTAL (CPK) VITAMIN D 25 HYDROXY LEVEL ZIGGY DNA AB SCREEN VITAMIN D 25 HYDROXY LEVEL HIV 1, 2 ANTIBODY VITAMIN D 1,25 DIHYDROXY LEVEL, SERUM POC GLUCOSE XR Chest 2 Vw Final Result US Renal (Results Pending) MEDICATIONS GIVEN Medications levothyroxine (SYNTHROID, LEVOXYL) tablet 50 mcg (50 mcg oral Given 12/25/17 0642 ) NIFEdipine XL (PROCARDIA XL) 24 hr tablet 30 mg (not administered) pancrelipase (yjpoyv-rdeqglnz-uxdmtxi) (CREON) 24,000-76,000 -120,000 unit per capsule 1 capsule (1 capsule oral Not Given 12/24/172129) pantoprazole (PROTONIX) EC tablet 40 mg (40 mg oral Given 12/25/17641) enoxaparin (LOVENOX) syringe 30 mg (30 mg subcutaneous Not Given 12/24/172129) losartan (COZAAR) tablet 50 mg (not administered) gemfibrozil (LOPID) tablet 600 mg (600 mg oral Given 12/25/17641) donepezil (ARICEPT) tablet 5 mg (5 mg oral Not Given 12/24/172144) losartan (COZAAR) tablet 50 mg (50 mg oral Not Given 12/24/172144) risperiDONE (RisperDAL) tablet 0.25 mg (0.25 mg oral Not Given 12/25/17 0000) miconazole (MICOTIN) vaginal suppository 100 mg (100 mg vaginal Not Given 0000) sodium chloride 0.9 % infusion (100 mL/hr intravenous New Bag 12/25/17 0056) dextrose 50% intravenous syringe (not administered) dextrose 50% intravenous syringe (not administered) glucagon injection 1 mg (not administered) dextrose 10 % infusion (not administered) insulin lispro (HumaLOG) injection (low dose correction scale) 0-5 Units (0 Units subcutaneous Not Given 12/25/17 0800) ED MD RECHECKS [place]: See above for interventions given to patient in ED for: Final diagnoses: Altered mental status, unspecified altered mental status type Dehydration ED VISIT SUMMARY Plan: Any labs, imaging, & meds listed above w/ ED physician reassessment. If no labs, imaging, or meds are listed then none were given. RN notes & vital signs reviewed. At least 2 sets of vitals were taken & reviewed if the patient was admitted. I reviewed the pt's PMH, PSH, FH, SH, Meds and Allergy history. History obtained from patient and patients employment educational coord. Prior records sought & summarized confirming history of: Past Medical History: Diagnosis Date Abnormal Pap smear of cervix Acid reflux Anesthesia nhap/nfhap - pt prefers "light anesthesia", no current cp/sob; crowns secure Breast mass benign Chronic pancreatitis 1974 on creon Dizziness states she is being worked up for this Exercises daily walks Hypertension Hypoglycemia Patient claims she gets hypoglycemic but is taking metformin Mild cognitive impairment Mixed anxiety and depressive disorder Neuropathic pain feet - DM Renal stone Type 2 diabetes mellitus Urinary incontinence Urinary tract infection Vaginal infection Wears glasses At least 1 MD bedside reassessment occurred to update patient, determine response to treatment & recheck the patents wellbeing. INTERPRETATIONS (additional)/Amount and/or Complexity of Data Reviewed: I reviewed the Pulse Oximetry and it is wnl by my independent interpretation. If patient was admitted to tele, then I reviewed the blocker heated metal forms on the patient All labs returned while pt in ED were wnl by my independent interpretation unless otherwise noted. All lab, imaging, ECG, other tracing, or specimen results interpretations are by my independent review & interpretation in the medicine & radiology section of CPT. DIAGNOSES Final diagnoses: Altered mental status, unspecified altered mental status type Dehydration All diagnoses are modified as: Acute, onset at home, initial encounter unless noted. All diagnoses are New and require Additional Workup (unless otherwise noted). DISCUSSIONS WITH CONSULTANTS AND PATIENT/PATIENT PROXY All consultants listed agreed with ED A&P, unless otherwise noted. All pt's questions & concerns addressed & answered.Pt told, understands & agrees with assessment and plan including dispo.DDX incl causes considered but not specified given they were low prob or unlikely to cause immediate or disability.DÍAZ for unlisted unlikely or benign causes would likely yielded harm> benefit. BLOOD PRESSURE COUNSELING: I recommended the patient have their BP screened at follow up with their PCP in >1 day and < 4 weeks, that the pt or pt' s proxy discuss the pt's BP with their PCP at that visit, and recommended lifestyle intervention including increased physical activity. Advanced care plan including surrogate discussed with patient and entered into medical record. I have documented a list of current medications using all immediate resources available on the date of the encounter and that list is here: Current Facility-Administered Medications: dextrose 10 % infusion, 40 mL/hr, intravenous, Continuous PRN, Margie Wright MD dextrose 50% intravenous syringe, 12.5 g, intravenous, Q20 Min PRN, Margie Wright MD dextrose 50% intravenous syringe, 25 g, intravenous, Q20 Min PRN, Margie Wright MD glucagon injection 1 mg, 1 mg, intramuscular, Q15 Min PRN, Margie Wright MD insulin lispro (HumaLOG) injection (low dose correction scale) 0-5 Units, 0 -5 Units, subcutaneous, TID with meals, Margie Wright MD sodium chloride 0.9 % infusion, 100 mL/hr, intravenous, Continuous, Jeanette Amador MD, Last Rate: 100 mL/hr at 12/25/1755, 100 mL/hr at 12/25/1755 donepezil (ARICEPT) tablet 5 mg, 5 mg, oral, Nightly, Jeanette Amador MD enoxaparin (LOVENOX) syringe 30 mg, 30 mg, subcutaneous, Daily at 1700, Jeanette Amador MD gemfibrozil (LOPID) tablet 600 mg, 600 mg, oral, BID AC, Jeanette Amador MD, 600 mg at 12/25/17 0642 levothyroxine (SYNTHROID, LEVOXYL) tablet 50 mcg, 50 mcg, oral, Daily at 0600, Jeanette Amador MD, 50 mcg at 12/25/17 06 losartan (COZAAR) tablet 50 mg, 50 mg, oral, Daily, Jeanette Amador MD losartan (COZAAR) tablet 50 mg, 50 mg, oral, Nightly, Jeanette Amador MD miconazole (MICOTIN) vaginal suppository 100 mg, 100 mg, vaginal, Nightly, Jeanette Amador MD NIFEdipine XL (PROCARDIA XL) 24 hr tablet 30 mg, 30 mg, oral, Daily, Jeanette Amador MD pancrelipase (dglvfm-hhgjidkm-ohucgha) (CREON) 24,000-76,000 -120,000 unit per capsule 1 capsule, 1 capsule, oral, TID with meals, Jeanette Amador MD pantoprazole (PROTONIX) EC tablet 40 mg, 40 mg, oral, Daily at 0600, Jeanette Amador MD, 40 mg at 12/25/17 0642 risperiDONE (RisperDAL) tablet 0.25 mg, 0.25 mg, oral, Nightly, Jeanette MD Jessica Allen Do 12/24/17 1817 [facility] Karmen Laurent MD 12/25/17 0846 * Venous blood gas (12/24/2017 4:43 PM) Component Value Ref Range pH, venous 7.35 7.32 - 7.42 pCO2, venous 43 (L) 45 - 51 mmHg pO2, venous 45 (H) 25 - 40 mmHg Base excess, venous -2 -2 - 2 meq/L O2 saturation, venous 79 (H) 40 - 70 % Bicarbonate, venous 23.0 21.0 - 28.0 mmol/L Specimen Performing Laboratory Blood [facility] DEPARTMENT OF PATHOLOGY AND GENOMIC MEDICINE [address] [place] [address] * Troponin (12/24/2017 4:10 PM) Only the most recent of 3 results within the time period is included. Component Value Ref Range Troponin <0.30 0.00 - 0.30 ng/mL Comment: 0.30 - 1.49 ng/ml May indicate increased risk of acute coronary syndrome. >=1.5 ng/ml Consistent with acute myocardial infarction. The diagnostic value of a single normal or non-diagnostic result is questionable. Serial samples at 2-6 hour intervals are required to rule out acute myocardial injury. Specimen Performing Laboratory Plasma specimen [facility] DEPARTMENT OF PATHOLOGY AND GENOMIC MEDICINE [address] [place] [address] * Blood culture, aerobic & anaerobic (12/24/2017 4:10 PM) Only the most recent of 3 results within the time period is included. Component Value Ref Range Blood culture isolate No growth after 5 days of incubation. Comment: Specimen Information Specimen Source: Blood Specimen Site: Forearm Left Specimen Performing Laboratory Blood [facility] DEPARTMENT OF PATHOLOGY AND GENOMIC MEDICINE [address] [place], [place] [id number] * Partial thromboplastin time, activated (12/24/2017 4:10 PM) Component Value Ref Range PTT 29.5 23.0 - 36.0 sec Comment: PTT therapeutic range for unfractionated heparin is 61.0-112.0 seconds which corresponds to Anti-Xa 0.3-0.7 U/ml. Specimen Performing Laboratory Blood [facility] DEPARTMENT OF PATHOLOGY AND GENOMIC MEDICINE [address] [place], [place] [id number] * Prothrombin time with INR (12/24/2017 4:10 PM) Only the most recent of 2 results within the time period is included. Component Value Ref Range Prothrombin time 13.8 12.0 - 15.0 sec INR 1.0 Comment: The International Normalized Ratio (INR) is a therapeutic monitoring tool for patients who are stable on oral anticoagulant therapy. An INR of 2.0-3.0 is suggested for deep vein thrombosis/pulmonary embolism. Specimen Performing Laboratory Blood [facility] [place] [address] * Thyroid stimulating hormone (12/24/2017 4:10 PM) Only the most recent of 2 results within the time period is included. Component Value Ref Range TSH 2.00 0.27 - 4.20 uIU/mL Specimen Performing Laboratory Plasma specimen [facility] [place] [address] * T4, free (12/24/2017 4:10 PM) Only the most recent of 2 results within the time period is included. Component Value Ref Range T4, free 1.6 0.9 - 1.7 ng/dL Specimen Performing Laboratory Plasma specimen [facility] [place] [address] * B natriuretic peptide (12/24/2017 4:10 PM) Only the most recent of 2 results within the time period is included. Component Value Ref Range BNP 16 0 - 100 pg/mL Specimen Performing Laboratory Blood [facility] [place] [address] * Creatine kinase, total (CPK) (12/24/2017 4:10 PM) Component Value Ref Range Creatine kinase 227 (H) 26 - 192 U/L Specimen Performing Laboratory Plasma specimen [facility] [place] [address] * Hepatic function panel (12/24/2017 4:10 PM) Component Value Ref Range Albumin 3.9 3.5 - 5.0 g/dL Total bilirubin 0.3 0.0 - 1.2 mg/dL Bilirubin direct <0.2 0.0 - 0.3 mg/dL Alkaline phosphatase 92 35 - 104 U/L Protein 9.0 (H) 6.3 - 8.3 g/dL Comment: [place] 4.6-7.0 g/dL 1 week 4.4-7.6 g/dL 7 months-1year 5.1-7.3 g/dL 1-2 years 5.6-7.5 g/dL >3 years 6.0-8.0 g/dL 18-150 6.3-8.3 g/dL ALT 24 5 - 50 U/L AST 23 10 - 35 U/L Specimen Performing Laboratory Plasma specimen [facility] DEPARTMENT OF PATHOLOGY AND GENOMIC MEDICINE [address] [place] [address] * XR Chest 2 Vw (12/24/2017 2:19 PM) Specimen Performing Laboratory [facility] [address] [place] [id number] Narrative EXAM: Chest PA and lateral. INDICATION: Fever. COMPARISON: Chest AP dated 12/14/2017. IMPRESSION: Unchanged since 12/14/2027 without evidence of acute cardiopulmonary abnormality. Heart size is normal. Moderate atherosclerosis aortic arch. Minimal right convex curvature mid thoracic spine. Moderate degenerative changes thoracic spine. Procedure Note Interface, Radiology Results Incoming - 12/24/2017 2:25 PM PRACTICE PERFORMANCE MANAGER EXAM: Chest PA and lateral. INDICATION: Fever. COMPARISON: Chest AP dated 12/14/2017. IMPRESSION: Unchanged since 12/14/2027 without evidence of acute cardiopulmonary abnormality. Heart size is normal. Moderate atherosclerosis aortic arch. Minimal right convex curvature mid thoracic spine. Moderate degenerative changes thoracic spine. * Lactic acid level, SEPSIS - Now and repeat 2x every 3 hours (12/14/2017 9:30 PM) Only the most recent of 3 results within the time period is included. Component Value Ref Range Lactic acid 1.0 0.5 - 2.2 mmol/L Specimen Performing Laboratory Plasma specimen [facility] DEPARTMENT OF PATHOLOGY AND GENOMIC MEDICINE [address] [place] [address] * Lipid panel (12/14/2017 4:56 PM) Component Value Ref Range Cholesterol 244 (H) <200 mg/dL Triglycerides 76 <150 mg/dL HDL cholesterol 104 >40 mg/dL LDL cholesterol 153 (H)Comment: Result obtained by direct LDL <100 mg/dL measurement Lipid panel SeeBelow interpretation Comment: Total Cholesterol (mg/dL) <200 Desirable 200-239 Borderline-high >=240 High Triglycerides (mg/dL) <150 Normal 150-199 Borderline-high 200-499 High >=500 Very high HDL Cholesterol (mg/dL) <40 Low (male) <40 Low (female) LDL Cholesterol (mg/dL) <100 Optimal 100-129 Near or above optimal 130-159 Borderline-high 160-189 High >=190 Very high Risk Catergories that modify LDL goals. Risk Catergories LDL goal (mg/dL) CHD and CHD risk equivalent <100 (10-year risk >20%) Multiple (2+) risk factors <130 (10-year risk=<20%) 0-1 risk factors <160 (<10-year risk) Defining levels of lipids in metabolic syndrome Triglycerides >=150 mg/dL HDL Cholesterol Men <40 mg/dL Women <40 mg/dL Non-HDL cholesterol is a second target for therapy in persons with high triglycerides (>=200 mg/dL) Specimen Performing Laboratory Plasma specimen [facility] DEPARTMENT OF PATHOLOGY AND GENOMIC MEDICINE [address] [place] [address] * CT Head Wo Contrast (12/14/2017 3:34 PM) Specimen Performing Laboratory [facility] [address] [place] [address] Narrative EXAMINATION: CT HEAD WO CONTRAST CLINICAL HISTORY: AMS COMPARISON:Brain MRI dated April 12, 2017. TECHNIQUE: Noncontrast enhanced images of the brain were obtained from the skull base to the vertex. Both soft tissue and bone reconstruction algorithms were performed.CT imaging was performed with iterative reconstruction technique and/or automated exposure control to reduce radiation dose. FINDINGS: There is no evidence of intracranial hemorrhage, intracranial mass, mass effect , midline shift or focal extra-axial collection. The salcedo-white matter differentiation is preserved. I do not see evidence to suggest a confluent area of transcortical ischemia. There are subtle areas of low density involving the winslow radiata and centrum semiovale white matter. These are nonspecific, but most commonly related to chronic microvascular ischemic change. The ventricles and extra-axial spaces are mildly prominent bilaterally, reflecting underlying cerebral parenchymal volume loss. There are vascular calcifications along the cavernous segments of both internal carotid arteries. No acute soft tissue hematoma or laceration. Paranasal sinuses shows no acute air-fluid levels.The nasal septum is deviated towards the right side. Mastoid air cells are clear.No skull fractures or aggressive bony lesions. IMPRESSION: No acute intracranial abnormality identified. [facility]-[id number] Procedure Note Interface, Radiology Results Incoming - 12/14/2017 3:44 PM PRACTICE PERFORMANCE MANAGER EXAMINATION: CT HEAD WO CONTRAST CLINICAL HISTORY: AMS COMPARISON: Brain MRI dated April 12, 2017. TECHNIQUE: Noncontrast enhanced images of the brain were obtained from the skull base to the vertex. Both soft tissue and bone reconstruction algorithms were performed. CT imaging was performed with iterative reconstruction technique and/or automated exposure control to reduce radiation dose. FINDINGS: There is no evidence of intracranial hemorrhage, intracranial mass, mass effect , midline shift or focal extra-axial collection. The salcedo-white matter differentiation is preserved. I do not see evidence to suggest a confluent area of transcortical ischemia. There are subtle areas of low density involving the winslow radiata and centrum semiovale white matter. These are nonspecific, but most commonly related to chronic microvascular ischemic change. The ventricles and extra-axial spaces are mildly prominent bilaterally, reflecting underlying cerebral parenchymal volume loss. There are vascular calcifications along the cavernous segments of both internal carotid arteries. No acute soft tissue hematoma or laceration. Paranasal sinuses shows no acute air-fluid levels. The nasal septum is deviated towards the right side. Mastoid air cells are clear. No skull fractures or aggressive bony lesions. IMPRESSION: No acute intracranial abnormality identified. [facility]-[id number] * XR Chest 1 Vw Portable (12/14/2017 1:30 PM) Specimen Performing Laboratory [facility] [address] [place] [address] Narrative EXAMINATION: XR CHEST 1 VW PORTABLE INDICATION: Chest Pain COMPARISON: 08/24/2016 IMPRESSION: Heart size is within normal limits. No focal infiltrate, effusion, or pneumothorax. Arteriosclerosis aortic arch. [id number] Procedure Note Interface, Radiology Results Incoming - 12/14/2017 1:45 PM PRACTICE PERFORMANCE MANAGER EXAMINATION: XR CHEST 1 VW PORTABLE INDICATION: Chest Pain COMPARISON: 08/24/2016 IMPRESSION: Heart size is within normal limits. No focal infiltrate, effusion, or pneumothorax. Arteriosclerosis aortic arch. [id number] * Comprehensive metabolic panel (12/14/2017 12:40 PM) Only the most recent of 4 results within the time period is included. Component Value Ref Range Sodium 141 135 - 148 mEq/L Potassium 4.3 3.5 - 5.0 mEq/L Chloride 104 98 - 112 mEq/L CO2 23 (L) 24 - 31 mEq/L Anion gap 14 7 - 15 mEq/L Comment: Starting from February , anion gap calculation no longer incorporates potassium. Please note the change. BUN 37 (H) 8 - 23 mg/dL Creatinine 1.1 (H) 0.5 - 0.9 mg/dL Glucose 97 65 - 99 mg/dL Calcium 10.2 8.8 - 10.2 mg/dL Protein 7.9 6.3 - 8.3 g/dL Comment: 4.6-7.0 g/dL 1 week 4.4-7.6 g/dL 7 months-1year 5.1-7.3 g/dL 1-2 years 5.6-7.5 g/dL >3 years 6.0-8.0 g/dL 18-150 6.3-8.3 g/dL Albumin 4.5 3.5 - 5.0 g/dL A/G ratio 1.3 0.7 - 3.8 Alkaline phosphatase 81 35 - 104 U/L AST 15 10 - 35 U/L ALT 14 5 - 50 U/L Total bilirubin 0.2 0.0 - 1.2 mg/dL Specimen Performing Laboratory Plasma specimen [facility] DEPARTMENT OF PATHOLOGY AND GENOMIC MEDICINE [id number] [place] [address] [place] [address] * Hemoglobin A1c (12/14/2017 12:20 PM) Only the most recent of 2 results within the time period is included. Component Value Ref Range Hemoglobin A1C 5.8 4.0 - 6.0 % Comment: Less than 6% - Goal of therapy for Type II Diabetes Less than 7%- Goal of therapy for Type I Diabetes Less than 8%- Acceptable control for Type I or Type II Diabetes Greater than 8%- Unacceptable control; action indicated. (A DA94) Specimen Performing Laboratory Blood [facility] DEPARTMENT OF PATHOLOGY AND GENOMIC MEDICINE [address] [place] [address] * ECG ED Preliminary Interpretation - NOT AN ORDER (12/04/2017 2:28 AM) Han Benz MD 12/04/20172:28 AM ECG ED Preliminary Interpretation - Not an Order Performed by: HUANG JOSEPH Authorized by: ERIK BENZ ECG reviewed by ED Physician in the absence of a home health care physician: yes Previous ECG: Previous ECG:Compared to current Interpretation: Interpretation: normal Rate: ECG rate:92 ECG rate assessment: normal Rhythm: Rhythm: sinus rhythm * Lipase level (12/03/2017 4:21 PM) Only the most recent of 2 results within the time period is included. Component Value Ref Range Lipase 78 (H) 13 - 60 U/L Specimen Performing Laboratory Plasma specimen [facility] DEPARTMENT OF PATHOLOGY AND [facility] MEDICINE [address] [place] [address] * Amylase level (12/03/2017 4:21 PM) Only the most recent of 2 results within the time period is included. Component Value Ref Range Amylase 98 28 - 100 U/L Specimen Performing Laboratory Plasma specimen [facility] DEPARTMENT OF PATHOLOGY AND [address] [address] * POC BLADDER SCAN/PVR (11/27/2017 10:56 AM) Only the most recent of 3 results within the time period is included. Specimen Performing Laboratory Urine Impressions PVR -61 ML * POC urinalysis dipstick (11/27/2017 10:55 AM) Only the most recent of 4 results within the time period is included. Component Value Ref Range Color urine, POC Yellow Clarity urine, POC Clear Glucose urine, POC Negative Negative Bilirubin urine, POC Negative Negative Ketones urine, POC Negative Negative Specific gravity urine, 1.020 1.005 - 1.030 POC Blood urine, POC Negative Negative pH urine, POC 6.0 5.0, 5.5, 6.0, 6.5, 7.0, 7.5, 8.0, 8.5 Protein urine, POC 3+ (A) Negative Urobilinogen urine, POC 2.0 (A) <2.0 Nitrite urine, POC Negative Negative Leukocyte esterase urine, Negative Negative POC Specimen Performing Laboratory Urine * CT Abdomen Pelvis Wo Contrast (10/15/2017 2:57 PM) Specimen Performing Laboratory [facility] [address] [place] [address] Narrative EXAMINATION:CT ABDOMEN PELVIS WO CONTRAST CLINICAL HISTORY:upper abd painintractable N V TECHNIQUE:Multiple axial images of the abdomen and pelvis were obtained without intravenous administration of iodinated contrast. Sagittal and coronal computerized reformatted images were also obtained. The lack of intravenous contrast reduces the sensitivity of detecting solid organ disease. COMPARISON:CT abdomen and pelvis without contrast from 02/27/2017 and KUB from 04/20/2017 IMPRESSION: 1.There is a stable, small, noncalcified subpleural pulmonary nodule seen within the right lower lobe measuring 0.3 cm in size. This is likely postinflammatory. The lung bases are otherwise clear. 2.The cardiac size is normal. No pericardial effusion. 3.Noncontrast evaluation of the liver is unremarkable. No intrahepatic biliary ductal dilatation. The gallbladder is not well visualized. Correlate for prior cholecystectomy. The common bile duct is prominent measuring 0.9 cm in diameter. No intrapancreatic ductal dilatation. 4.The pancreas, spleen, and adrenals are within normal limits. 5.Nonspecific bilateral perinephric stranding is noted. No hydronephrosis or nephrolithiasis. Of note, previously noted nonobstructing renal stones within the right collecting system are no longer visualized and have likely been passed in the interim. No stones are seen within the ureters. The bladder is unremarkable. No bladder wall thickening. No calcifications are seen within the bladder. 6.The uterus is not visualized. Bilateral ovarian cysts are noted. Multiple cysts are again seen within the left ovary, the largest measures 1.9 cm. Again noted is a 2.1 cm cyst within the right ovary, also unchanged. 7. No dilated loops of large or small bowel. No intraperitoneal free air or free fluid. 8.Significant atherosclerotic calcification is noted within the abdominal aorta which is normal in caliber. 9.No abdominal or pelvic lymphadenopathy. 10.Patient is status post right hip arthroplasty. Osteopenia. No vertebral body height loss. All CT images were acquired using low-dose technique with automated exposure control and/or iterative reconstruction. [facility]-[id number] Procedure Note Hm Interface, Radiology Results Incoming - 10/15/2017 3:07 PM PRACTICE PERFORMANCE MANAGER EXAMINATION: CT ABDOMEN PELVIS WO CONTRAST CLINICAL HISTORY: upper abd pain intractable N V TECHNIQUE: Multiple axial images of the abdomen and pelvis were obtained without intravenous administration of iodinated contrast. Sagittal and coronal computerized reformatted images were also obtained. The lack of intravenous contrast reduces the sensitivity of detecting solid organ disease. COMPARISON: CT abdomen and pelvis without contrast from 02/27/2017 and KUB from IMPRESSION: 1. There is a stable, small, noncalcified subpleural pulmonary nodule seen within the right lower lobe measuring 0.3 cm in size. This is likely postinflammatory. The lung bases are otherwise clear. 2. The cardiac size is normal. No pericardial effusion. 3. Noncontrast evaluation of the liver is unremarkable. No intrahepatic biliary ductal dilatation. The gallbladder is not well visualized. Correlate for prior cholecystectomy. The common bile duct is prominent measuring 0.9 cm in diameter. No intrapancreatic ductal dilatation. 4. The pancreas, spleen, and adrenals are within normal limits. 5. Nonspecific bilateral perinephric stranding is noted. No hydronephrosis or nephrolithiasis. Of note, previously noted nonobstructing renal stones within the right collecting system are no longer visualized and have likely been passed in the interim. No stones are seen within the ureters. The bladder is unremarkable. No bladder wall thickening. No calcifications are seen within the bladder. 6. The uterus is not visualized. Bilateral ovarian cysts are noted. Multiple cysts are again seen within the left ovary, the largest measures 1.9 cm. Again noted is a 2.1 cm cyst within the right ovary, also unchanged. 7. No dilated loops of large or small bowel. No intraperitoneal free air or free fluid. 8. Significant atherosclerotic calcification is noted within the abdominal aorta which is normal in caliber. 9. No abdominal or pelvic lymphadenopathy. 10. Patient is status post right hip arthroplasty. Osteopenia. No vertebral body height loss. All CT images were acquired using low-dose technique with automated exposure control and/or iterative reconstruction. [id number] * ALT (SGPT) (10/15/2017 12:40 PM) Component Value Ref Range ALT 17 5 - 50 U/L Specimen Performing Laboratory Plasma specimen [facility] DEPARTMENT OF PATHOLOGY AND GENOMIC MEDICINE [address] [place] [address] * AST (SGOT) (10/15/2017 12:40 PM) Component Value Ref Range AST 24 10 - 35 U/L Specimen Performing Laboratory Plasma specimen [facility] DEPARTMENT OF PATHOLOGY AND GENOMIC MEDICINE [address] [place] [address] * Potassium level (10/15/2017 12:40 PM) Component Value Ref Range Potassium 3.7 3.5 - 5.0 mEq/L Specimen Performing Laboratory Plasma specimen [facility] DEPARTMENT OF PATHOLOGY AND GENOMIC MEDICINE [address] [place] [address] * Lactic acid level (10/15/2017 12:40 PM) Only the most recent of 2 results within the time period is included. Component Value Ref Range Lactic acid 1.1 0.5 - 2.2 mmol/L Specimen Performing Laboratory Plasma specimen [facility] DEPARTMENT OF PATHOLOGY AND GENOMIC MEDICINE [address] [place] [address] * XR Abdomen 1 Vw (04/20/2017 6:42 PM) Specimen Performing [facility] [address] [place] [address] Narrative EXAMINATION:XR ABDOMEN 1 VW CLINICAL HISTORY:Kidney Stone COMPARISON:Stone protocol CT March 29, 2017 IMPRESSION: Previously described right-sided kidney stone is not definitively visualized. No radiopaque calculi are seen. Bowel gas pattern is nonobstructive. Status post right hip arthroplasty. No pneumoperitoneum. [facility]-[id number] Procedure Note Interface, Radiology Results Incoming - 04/20/2017 8:19 PM CDT EXAMINATION: XR ABDOMEN 1 VW CLINICAL HISTORY: Kidney Stone COMPARISON: Stone protocol CT March 29, 2017 IMPRESSION: Previously described right-sided kidney stone is not definitively visualized. No radiopaque calculi are seen. Bowel gas pattern is nonobstructive. Status post right hip arthroplasty. No pneumoperitoneum. [facility]-[id number] * ECG Pre/Post Op (04/12/2017 5:25 PM) Component Value Ref Range Ventricular rate 84 Atrial rate 84 WI interval 174 QRSD interval 78 QT interval 392 QTC interval 463 P axis 1 67 QRS axis 1 9 T wave axis 66 EKG impression Normal sinus rhythm-Possible Left atrial enlargement-Septal infarct , age undetermined-Abnormal ECG-In automated comparison with ECG of 24-AUG-2016 12:58,-Septal infarct is now present- Specimen Performing Laboratory [facility] [address] [address] [place] [address] * MRI Brain Wo Contrast (04/12/2017 3:48 PM) Specimen Performing Laboratory [facility] [address] [place] [address] Narrative EXAMINATION:MRI BRAIN WO CONTRAST CLINICAL HISTORY:I67.2 Cerebral atherosclerosis, cerebral atherosclerosis COMPARISON:None. Findings: No intracranial hemorrhage, acute ischemia, extra-axial fluid collections or parenchymal mass lesions. No hydrocephalus. No suspicious focal bone marrow lesions. Mild to moderate chronic ischemic vessel white matter changes. Major flow voids are maintained. IMPRESSION: No acute intracranial abnormalities or mass lesions. [facility]-[id number] Procedure Note Interface, Radiology Results Incoming - 04/12/2017 4:24 PM CDT EXAMINATION: MRI BRAIN WO CONTRAST CLINICAL HISTORY: I67.2 Cerebral atherosclerosis, cerebral atherosclerosis COMPARISON: None. Findings: No intracranial hemorrhage, acute ischemia, extra-axial fluid collections or parenchymal mass lesions. No hydrocephalus. No suspicious focal bone marrow lesions. Mild to moderate chronic ischemic vessel white matter changes. Major flow voids are maintained. IMPRESSION: No acute intracranial abnormalities or mass lesions. [facility]-[id number] * PT and PTT (04/12/2017 7:09 AM) Component Value Ref Range PTT 26 22 - 34 sec Comment: This test has not been validated for monitoring unfractionated heparin therapy. For testing that is validated for this type of therapy, please refer to the Heparin Anti-Xa assay (test code 35418). For additional information, please refer to http://education.[employer]/faq/ZUF957 (This link is being provided for informational/educational purposes only.) INR 1.0 Comment: Reference Range 0.9-1.1 Moderate-intensity Warfarin Therapy 2.0-3.0 Higher-intensity Warfarin Therapy 3.0-4.0 Prothrombin time 10.5 9.0 - 11.5 sec Specimen Performing Laboratory Blood [facility] Narrative FASTING:YES * Urinalysis, automated with microscopy (04/12/2017 7:09 AM) Component Value Ref Range Color, UA YELLOW YELLOW Appearance CLEAR CLEAR Specific gravity, urine 1.022 1.001 - 1.035 pH, urine 6.0 5.0 - 8.0 Glucose, urine NEGATIVE NEGATIVE Bilirubin, UA NEGATIVE NEGATIVE Ketones, UA NEGATIVE NEGATIVE Occult blood, urine NEGATIVE NEGATIVE Protein, UA TRACE (A) NEGATIVE Nitrite, UA NEGATIVE NEGATIVE Leukocyte esterase, UA NEGATIVE NEGATIVE WBC, UA 0-5 < OR=5 /HPF RBC, UA 0-2 < OR=2 /HPF Squamous epithelial 20-40 (A) < OR=5 /HPF cells, UA Bacteria, UA FEW (A) NONE SEEN /HPF Calcium oxalate crystals, FEW NONE OR FEW /HPF UA Hyaline casts, UA NONE SEEN NONE SEEN /LPF Yeast, UA FEW (A) NONE SEEN /HPF Comment FEW MUCOUS THREADS Specimen Performing Laboratory Urine [facility] Narrative FASTING:YES * Homocystine, plasma (03/29/2017 3:37 PM) Component Value Ref Range Homocysteine 16.4 (H) 0.0 - 15.0 umol/L Comment: The risk for coronary vascular disease increases progressively with homocysteine concentration. A 3.4 times greater risk is associated with a homocysteine concentration of greater than 15.8 umol/L as compared to a concentration below 14.1 umol/L. Specimen Performing Laboratory Plasma specimen [facility] DEPARTMENT OF PATHOLOGY AND [facility] MEDICINE [address] [place] [address] * ZIGGY titer (03/29/2017 3:37 PM) Component Value Ref Range ZIGGY titer 1:160 (A) Not-Detected ZIGGY titer 1 1:160 (A) Not-Detected ZIGGY pattern Homogeneous (A) Not-Detected Specimen Performing Laboratory Blood [facility] PATHOLOGY [address] [address] * Vitamin B1 level, whole blood (03/29/2017 3:37 PM) Component Value Ref Range Vitamin B1 110 70 - 180 nmol/L Comment: INTERPRETIVE INFORMATION: Vitamin B1, Whole Blood This assay measures the concentration of thiamine diphosphate (TDP), the primary active form of vitamin B1. Approximately 90 percent of vitamin B1 present in whole blood is TDP. Thiamine and thiamine monophosphate, which comprise the remaining 10 percent, are not measured. Test developed and characteristics determined by [employer] See Compliance Statement B: [employer] Performed by [employer] [address] [place] [id number] [email or web address], Curtis Muniz MD - Lab. Director Specimen Performing Laboratory Plasma specimen [address] [address] * Rheumatoid factor (03/29/2017 3:37 PM) Component Value Ref Range Rheumatoid factor <10 0 - 13 IU/mL Specimen Performing Laboratory Plasma specimen [facility] DEPARTMENT OF PATHOLOGY AND [facility] MEDICINE [address] [place], [place] [id number] * T3 (03/29/2017 3:37 PM) Component Value Ref Range T3 203 (H) 80 - 200 ng/dL Specimen Performing Laboratory Plasma specimen [facility] DEPARTMENT OF PATHOLOGY AND [facility] MEDICINE [address] [place] [address] * Vitamin B12 level (03/29/2017 3:37 PM) Component Value Ref Range Vitamin B12 507 211 - 946 pg/mL Comment: Significant overlap exists between normal and deficiency states. However, most patients with deficiencies will have Serum B12 <200 pg/mL. Specimen Performing Laboratory Serum [facility] DEPARTMENT OF PATHOLOGY AND [facility] [address] [place] [address], [place] [address] * CT Renal Stone Protocol (03/29/2017 11:14 AM) Specimen Performing Laboratory [facility] [address] [place] [address] Narrative EXAMINATION:CT RENAL STONE PROTOCOL CLINICAL HISTORY:uti's Order diagnosis - Urinary tract infectionsite not specified Hematuriaunspecified Retention of urineunspecified Mixed incontinence COMPARISON:09/12/2016 TECHNIQUE:CT of the abdomen and pelvis without intravenous contrast. Absence of intravenous contrast decreases sensitivity for detection of focal lesions and vascular pathology. CT imaging was performed with iterative reconstruction techniques and/or automated exposure control to reduce radiation dose. FINDINGS: LOWER THORAX: 1. Minimal bibasilar atelectasis. 3 mm right lower lobe nodule (series 2, image 13) is nonspecific. It may represent a noncalcified granuloma or intrapulmonary lymph node. A 12 month follow-up could be obtained if there is a history of smoking or there are other risk factors. 2.There are some coronary artery calcifications. ABDOMEN: 1.5 mm nonobstructing calyceal stone in the mid to lower portion of the right kidney. No other renal stones. Ureters are obscured in areas. No definitive ureteral stone or hydronephrosis. There are some areas of cortical scarring in the kidneys. 2.Gallbladder is not visualized and is presumed absent. There is some mild prominence of the biliary system likely related to postcholecystectomy state. Common duct measures 8 mm. Please correlate with laboratory values to determine the need for further evaluation. 3.The unenhanced liver, spleen, adrenal glands, pancreas are unremarkable. 4.Absence of contrast decreases sensitivity for bowel pathology. Moderate fecal material in the colon. The appendix is not localized. No obstruction. 5.Moderate atherosclerotic disease in the abdominal aorta which is nonaneurysmal. No abdominal adenopathy. No ascites. PELVIS: 1.There are some fluid density lesions within each adnexa, likely in the ovaries. Largest on each side measures 2.4 cm. 2.Streak artifact slightly limits evaluation of the pelvis. The uterus is absent. There is no pelvic sidewall adenopathy. Nonopacified bladder unremarkable. 3.Right hip arthroplasty. Degenerative changes in the spine. IMPRESSION: 1.Nonobstructing calyceal stone right kidney. No hydronephrosis. There is renal cortical scarring bilaterally. 2.Hypodense lesions in the bilateral adnexa, likely cysts in the ovaries. Given the patient's age, a pelvic ultrasound is advised. 3.Additional findings as above. [facility]-[id number] Procedure Note [facility], Radiology Results Incoming - 03/29/2017 12:15 PM CDT EXAMINATION: CT RENAL STONE PROTOCOL CLINICAL HISTORY: uti's Order diagnosis - Urinary tract infection site not specified Hematuria unspecified Retention of urine unspecified Mixed incontinence COMPARISON: 09/12/2016 TECHNIQUE: CT of the abdomen and pelvis without intravenous contrast. Absence of intravenous contrast decreases sensitivity for detection of focal lesions and vascular pathology. CT imaging was performed with iterative reconstruction techniques and/or automated exposure control to reduce radiation dose. FINDINGS: LOWER THORAX: 1. Minimal bibasilar atelectasis. 3 mm right lower lobe nodule (series 2, image 13) is nonspecific. It may represent a noncalcified granuloma or intrapulmonary lymph node. A 12 month follow-up could be obtained if there is a history of smoking or there are other risk factors. 2.There are some coronary artery calcifications. ABDOMEN: 1.5 mm nonobstructing calyceal stone in the mid to lower portion of the right kidney. No other renal stones. Ureters are obscured in areas. No definitive ureteral stone or hydronephrosis. There are some areas of cortical scarring in the kidneys. 2.Gallbladder is not visualized and is presumed absent. There is some mild prominence of the biliary system likely related to postcholecystectomy state. Common duct measures 8 mm. Please correlate with laboratory values to determine the need for further evaluation. 3.The unenhanced liver, spleen, adrenal glands, pancreas are unremarkable. 4.Absence of contrast decreases sensitivity for bowel pathology. Moderate fecal material in the colon. The appendix is not localized. No obstruction. 5.Moderate atherosclerotic disease in the abdominal aorta which is nonaneurysmal. No abdominal adenopathy. No ascites. PELVIS: 1.There are some fluid density lesions within each adnexa, likely in the ovaries. Largest on each side measures 2.4 cm. 2.Streak artifact slightly limits evaluation of the pelvis. The uterus is absent. There is no pelvic sidewall adenopathy. Nonopacified bladder unremarkable. 3.Right hip arthroplasty. Degenerative changes in the spine. IMPRESSION: 1.Nonobstructing calyceal stone right kidney. No hydronephrosis. There is renal cortical scarring bilaterally. 2.Hypodense lesions in the bilateral adnexa, likely cysts in the ovaries. Given the patient's age, a pelvic ultrasound is advised. 3.Additional findings as above. [facility]-[id number] after 03/24/2017 Insurance Payer Benefit Subscriber ID Type Phone Address Plan / Group [employer] xxxxxxxxx [facility]
--- OUTSIDE RECORDS SUMMARY | 2018-03-25 10:06 | XMS REPORT ---
Author Author [facility] Address Unknown Phone Unavailable Care Team Providers Care Cow Puncher Name Role Phone YOSSI PERRY Unavailable Unavailable Problems This patient has no known problems. Allergies, Adverse Reactions, Alerts This patient has no known allergies or adverse reactions. Medications This patient has no known medications. Results Test Description Test Time Test Comments Text Results Atomic Results Result Comments TOES LEFT MIN 2 VIEWS [place] [address] Patient Name: ROXANNE PRATT MR #: [id number] : 1945 Age/Sex: 73/F Req #: [id number] Adm Physician: Ordered by: YOSSI PERRY MD Report #: [id number] Location: [facility] Room/Bed: Procedure: [id number] DX/TOES LEFT MIN 2 VIEWS Exam Date: 02/05/18 Exam Time: 1120 REPORT STATUS: Signed PROCEDURE: TOES LEFT MIN 2 VIEWS TECHNIQUE: AP, lateral and oblique views left foot INDICATION: Osteomyelitis of the second digit COMPARISON: None. FINDINGS: Postoperative changes of bunionectomy and hallux valgus repair. Intact hardware. Generalized osteopenia. Healed fracture of the second toe metatarsal mid shaft. No focal erosion or periosteal reaction. Image regional skeleton intact. CONCLUSION: No evidence of acute osteomyelitis. Osteopenia. Dictated by: Ben Malone M.D. on 02/05/2018 at 11:51 Electronically approved by: Ben Malone M.D. on 02/05/2018 at 11:51 Dictated By: BEN MALONE MD 1151 Transcribed By: BERTA on 02/05/18 1151 COPY TO: YOSSI PERRY MD
--- OUTSIDE RECORDS SUMMARY | 2018-03-25 10:06 | XMS REPORT | Clinical Summary ---
Author Author [facility] Address Unknown Phone Unavailable Care Team Providers Care Community Relations Rep Name Role Phone PCP Unavailable Allergies Not on File Current Medications Not on file Active Problems Not on file Social History Tobacco Use Types Packs/Day Years Used Date Never Assessed Sex Assigned at Date Recorded Not on file Last Filed Vital Signs Not on file Plan of Treatment Not on file Results Not on fileafter 03/24/2017
[2018-03-25 10:52] LABS: BASOPHILS % 0.2 % (0.0-1.0); EOSINOPHILS % 0.3 % (0.0-6.0); HEMOGLOBIN 12.6 g/dL (12.0-16.0); LYMPHOCYTES # (AUTO) 1.8 (1.0-3.2); LYMPHOCYTES % 30.6 % (18.0-39.1); MEAN CORPUSCULAR HEMOGLOBIN 31.1 pg (28-32); MEAN CORPUSCULAR HGB CONC 34.1 g/dL (31-35); MEAN CORPUSCULAR VOLUME 91.4 fL (81-99); MONOCYTES # (AUTO) 0.5 (0.2-0.8); MONOCYTES % 8.8 % (4.4-11.3); NEUTROPHILS # (AUTO) 3.6 (2.1-6.9); NEUTROPHILS % 59.9 % (38.7-80.0); PLATELET COUNT 246 x10e3/uL (140-360); RED BLOOD COUNT 4.05 x10e6/uL (3.6-5.1); RED CELL DISTRIBUTION WIDTH 12.8 % (11.7-14.4)
--- NOTE | 2018-03-25 10:54 | Diagnostic Imaging Report ---
PROCEDURE: X-RAY CHEST, TWO VIEWS COMPARISON: 09/01/2013. INDICATIONS: WEAKNESS, SHORTNESS OF BREATH FINDINGS: Lungs are well-inflated. No focal airspace consolidation, pleural effusion, or pneumothorax. Tortuosity and atherosclerotic calcification of the thoracic aorta, unchanged. Otherwise unremarkable cardiomediastinal contour. No acute osseous abnormality. Multilevel degenerative disc changes of the thoracic spine. CONCLUSION: No acute cardiopulmonary abnormality. Dictated by: Christiano Hannah M.D. on 03/25/2018 at 10:56 Electronically approved by: Christiano Hannah M.D. on 03/25/2018 at 10:56
[2018-03-25 11:07] LABS: ALBUMIN 3.7 g/dL (3.5-5.0); ALBUMIN/GLOBULIN RATIO 0.9 (0.8-2.0); CREATININE, SERUM 1.03 mg/dL (0.57-1.11)
[2018-03-25 14:02] LABS: BILIRUBIN,URINE NEGATIVE (NEGATIVE); CLARITY,URINE CLEAR (CLEAR); COLOR,URINE YELLOW (YELLOW); KETONES,URINE NEGATIVE (NEGATIVE); LEUKOCYTE ESTERASE ,URINE NEGATIVE (NEGATIVE); NITRITE,URINE NEGATIVE (NEGATIVE); PROTEIN,URINE DIPSTICK NEGATIVE (NEGATIVE); URINE UROBILINOGEN 0.2 mg/dL (0.2 - 1)
[2018-03-25 14:03] LABS: EPITHELIAL CELLS,URINE RARE /LPF
[2018-03-25 14:05] LABS: TRANSITIONAL EPI CELLS,URINE RARE
== END | disposition home or self-care (01) ==
LOC: ER 10:01
DX: R10.13 Epigastric pain (principal); R11.0 Nausea; F03.90 Unspecified dementia, unspecified severity, without behavioral disturbance, psychotic disturbance, mood disturbance, and anxiety; I10 Essential (primary) hypertension; K86.1 Other chronic pancreatitis
CPT/HCPCS: 36415; 71046; 80053; 81001; 82150; 83605; 83690; 85025; 87040; 87086; 99284

== ENCOUNTER 2018-05-23 16:17 | Inpatient (IN) | payer OTHER ==
[~2018-05-23] VITALS: Ht 157.5 cm; Wt 48.8 kg
[2018-05-23 20:00] VITALS: BP 161/76
[2018-05-23 21:06] LABS: BASOPHILS % 0.2 % (0.0-1.0); EOSINOPHILS % 0.7 % (0.0-6.0); HEMATOCRIT 34.7 % (34.2-44.1); HEMOGLOBIN 12.2 g/dL (12.0-16.0); LYMPHOCYTES # (AUTO) 1.8 (1.0-3.2); LYMPHOCYTES % 30.3 % (18.0-39.1); MEAN CORPUSCULAR HEMOGLOBIN 31.7 pg (28-32); MEAN CORPUSCULAR HGB CONC 35.2 g/dL (31-35); MEAN CORPUSCULAR VOLUME 90.1 fL (81-99); MONOCYTES # (AUTO) 0.7 (0.2-0.8); MONOCYTES % 11.6 % (4.4-11.3); NEUTROPHILS # (AUTO) 3.4 (2.1-6.9); PLATELET COUNT 293 x10e3/uL (140-360); RED BLOOD COUNT 3.85 x10e6/uL (3.6-5.1); RED CELL DISTRIBUTION WIDTH 12.7 % (11.7-14.4)
[2018-05-23 21:17] LABS: ALBUMIN 3.8 g/dL (3.5-5.0); ALBUMIN/GLOBULIN RATIO 0.9 (0.8-2.0); ANION GAP 17.1 mmol/L (8-16); CALCIUM 11.2 mg/dL (8.4-10.2); CREATININE, SERUM 1.1 mg/dL (0.57-1.11); POTASSIUM 4.1 mmol/L (3.5-5.1)
[2018-05-23 21:42] LABS: BILIRUBIN,URINE NEGATIVE (NEGATIVE); CLARITY,URINE CLEAR (CLEAR); COLOR,URINE YELLOW (YELLOW); KETONES,URINE NEGATIVE (NEGATIVE); LEUKOCYTE ESTERASE ,URINE NEGATIVE (NEGATIVE); NITRITE,URINE NEGATIVE (NEGATIVE); PROTEIN,URINE DIPSTICK NEGATIVE (NEGATIVE); URINE UROBILINOGEN 0.2 mg/dL (0.2 - 1)
[2018-05-23 21:51] LABS: BACTERIA,URINE MODERATE /HPF; EPITHELIAL CELLS,URINE MANY /LPF; TRANSITIONAL EPI CELLS,URINE FEW; WBC,URINE (MAN) 0-5 /HPF (0-5)
[2018-05-23] MEDS ORDERED: ACETAMINOPHEN 325 MG TAB PO PRN (22:15)
[2018-05-24] VITALS (8 sets, daily range): BP systolic 138–179; BP diastolic 79–91
[2018-05-24] MEDS: CEFTRIAXONE SOD 1 GM VIAL IV SCH ×2 (00:20→23:38)
[2018-05-24] MEDS: SODIUM CHLORIDE 0.9% 1000ML 1,000 ML IV SCH ×2 (00:30→20:00)
[2018-05-24] MEDS ORDERED: PROMETHAZINE HC25 M1 PO (02:57)
[2018-05-24] MEDS ORDERED: NIFEDIPINE10 MG PO (02:57)
[2018-05-24] MEDS ORDERED: TRAZODONE HCL50 MG PO (02:57)
[2018-05-24] MEDS ORDERED: CEFTRIAXONE500 MG IV (02:57)
--- NOTE | 2018-05-24 14:42 | Diagnostic Imaging Report ---
EXAMINATION: MRI of the brain without contrast. HISTORY: Memory loss COMPARISON: None. TECHNIQUE: Sagittal T1 ultrathin slice with coronal and axial reformations; axial DWI, T2, FLAIR, T2 gradient echo. IMAGE QUALITY: Adequate. FINDINGS: DEMENTIA: Structural lesion: No intra- or extra-axial mass or hematoma. Ventricles: No hydrocephalus. Rosa matter signal intensity: Cortex: Unremarkable. Basal ganglia: Unremarkable. Thalami: Unremarkable. White matter signal intensity: Cerebral: Scattered and moderate confluent periventricular white matter T2 and FLAIR hyperintense foci, most likely nonspecific chronic microvascular ischemic changes Brainstem: Unremarkable. Mamillary bodies/fornices and hippocampi: No atrophy or abnormal signal. Microhemorrhages: None. Atrophy: Global: Symmetric and age-appropriate. Focal: No disproportionate lobar, hippocampal, mesencephalic, pontine, or cerebellar atrophy. Vessels: Expected flow voids present in the major arteries and dural sinuses. Sella: Unremarkable. OTHER: Subarachnoid spaces: No abnormal signal intensity. Foramen magnum: Unremarkable. Skull: Unremarkable. Paranasal / mastoid sinuses: No significant inflammatory disease. IMPRESSION: 1. Mild chronic microvascular ischemic changes. 2. No disproportionate brain atrophy. Signed by: Dr. Christine Pierre M.D. on 05/24/2018 2:38 PM
[2018-05-24] MEDS: CARBIDOPA/LEVODOPA 25/100 TAB PO SCH ×2 (15:27→21:56)
--- NOTE | 2018-05-24 15:49 | Consultation ---
DATE OF CONSULTATION: May 24, 2018 NEUROLOGY CONSULTATION HISTORY OF PRESENT ILLNESS: Ms. Sood is a 73-year-old [id number] woman with past medical history significant for a prior history of hypertension, hyperlipidemia, prior history of diabetes mellitus, thyroid disease, multiple urinary tract infections, and dementia diagnosed approximately 1 year ago who presented to [facility] on May 23, 2018 as a direct admission from Dr. Baird's office. The patient presented to Dr. Baird's office with concerns for another urinary tract infection. Her symptoms included: Worsening confusion, abdominal pain and cramping, decreased oral intake, and nausea without vomiting. After evaluating the patient in his office, Dr. Baird was concerned there was an underlying neurological disease present. Therefore, he recommended the patient be admitted to [facility] for further evaluation. Ms. Sood was reportedly diagnosed with mild cognitive impairment/dementia approximately 1 to 2 years ago. Within 1 year after the diagnosis of dementia, patient, developed hypophonia, masked facies, bradykinesia, freezing, shuffling gait, frequent stumbling/falls with some injury to the hands, left hand tremor, and generalized weakness. Ms. Sood is under the care of a neurologist. She was last seen by this neurologist 2 to 3 weeks ago. Per the patient's , the extrapyramidal symptoms were thought to be a side effect of Reglan which was prescribed approximately 10 days ago following an EGD which revealed gastroparesis, gastritis, and hiatal hernia. However, the patient's reports the parkinsonian symptoms began long before Ms. Sood began taking Reglan. REVIEW OF SYSTEMS: Abdominal pain, nausea, decreased oral intake, confusion, hypophonia, generalized weakness, impairment of balance and gait, freezing, tremors, bradykinesia, delusions, visual and auditory hallucinations. Otherwise a 12-point review of systems is negative. PAST MEDICAL HISTORY: History of hypertension, hyperlipidemia, history of diabetes mellitus, thyroid disease, multiple urinary tract infections, recently diagnosed gastritis, gastroparesis and hiatal hernia, anxiety disorder, dementia, and pancreatitis. PAST SURGICAL HISTORY: Right hip replacement in 2007, repair of right hip replacement in 2014, partial hysterectomy, cholecystectomy, foot surgeries, tonsillectomy, appendectomy, bladder surgeries, and cardiac catheterization. PAST HOSPITALIZATIONS: Surgeries/procedures as listed, childbirth twice, multiple urinary tract infections. FAMILY HISTORY: Patient's paternal and maternal grandparents are . Their medical histories are unknown. Patient's father is from coronary artery disease with a myocardial infarction. Patient's mother is from coronary artery disease with myocardial infarction. She had dementia as well. The patient had 2 sisters and 3 brothers. All are . Each brother from cancer following exposure to agent orange. The causes of for the patient's sisters is not known. Ms. Sood has 2 sons. Both are alive and have hypertension. SOCIAL HISTORY: Patient is . She is a high school graduate. 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 The patient does endorse prior tobacco use, but quit smoking cigarettes approximately 20 years ago. Ms. Sood occasionally consumes alcohol. She does not report current or prior recreational drug use. HOME MEDICATIONS: Alprazolam 0.5 mg by mouth at bedtime daily, ceftriaxone 250 mg. IV daily, estradiol 1 mg by mouth daily, gemfibrozil 600 mg by mouth twice daily, levothyroxine 50 mcg by mouth daily, Creon 1 capsule by mouth three times daily with meals, losartan 100 mg by mouth twice daily, metformin 500 mg by mouth at bedtime daily, Myrbetriq 25 mg by mouth daily, nifedipine 30 mg by mouth twice daily, pantoprazole 40 mg by mouth daily, promethazine 12.5 mg by mouth as needed for nausea, trazodone 25 mg by mouth at bedtime daily. ALLERGIES: STATINS, AMOXICILLIN, BACITRACIN, ACID, HYDROCODONE, LEVOTHYROXINE. NO KNOWN FOOD ALLERGIES. NO KNOWN ALLERGIES TO LATEX. NO KNOWN ALLERGIES TO IODINE OR OTHER CONTRAST MATERIALS. PHYSICAL EXAMINATION: VITAL SIGNS: Height 62 inches, weight 149 lbs., BMI 27.3 kg per meter squared. Blood pressure 158/88 mmHg, pulse 94 beats per minute. Respiratory rate 18 breaths per minute. Oxygen saturation 97% on room air. GENERAL: Patient is awake and alert, does not appear distressed. Hypophonic. Masked facies. HEENT: Normocephalic, atraumatic. Pupils are equal, round and reactive to light. Moist mucous membranes. NECK: Supple. No appreciable thyromegaly. No appreciable carotid bruits. CARDIOVASCULAR: S1, S2, regular rate and rhythm.. No murmurs, rubs, or gallops. RESPIRATORY: Clear to auscultation bilaterally. No wheezes, rhonchi or rales. EXTREMITIES: No clubbing, cyanosis, or edema. The posterior tibial and dorsalis pedis pulses are 1+ and symmetric. SKIN: Warm and dry. No rashes or lesions. NEUROLOGIC: Memory/attention: The patient is awake and alert. Oriented to person, place (state only) time (year only), and loosely to situation. CRANIAL NERVES: Cranial nerve I: Not tested. Cranial nerves II, III, IV, : Pupils are equal and round, react briskly to light (from 4 mm to 2 mm). Extraocular movements intact. No nystagmus. Cranial nerve V: Sensation to light touch and pinprick is intact in the bilateral V1 through V3 distributions. Strength of the temporalis and masseter muscles is within normal limits. Cranial nerve VII: The face is symmetric, as are all facial movements. Strength is within normal limits. Cranial nerve VIII: Hearing is intact to finger rub bilaterally. Cranial nerve IX and X: The soft palate elevates equally and symmetrically. Cranial nerve XI: Normal strength of the bilateral sternocleidomastoid and trapezius muscles. Cranial nerve XII: The tongue protrudes midline and moves symmetrically from side to side. STRENGTH: Bulk is normal, and strength is grossly 4/5 in the bilateral deltoids, biceps, triceps, wrist flexors and extensors, finger flexors and extensors, intrinsic hand muscles, hip flexors, knee flexors and extensors, ankle dorsiflexion and plantar flexion, and intrinsic foot muscles. Tone is increased in all 4 extremities with cogwheeling in the right arm. DTRs: Deep tendon reflexes are 1+ and symmetric at the triceps, biceps, brachioradialis, patellas, and Achilles. Plantar responses are flexor bilaterally. SENSATION: Intact to light touch and pinprick in both arms and both legs. CEREBELLAR: Ejlebz-rcfj-jgnqoh and heel-clemens movements are moderately slowed. There is segmental hypokinesis with finger and toe tapping bilaterally. GAIT: Deferred. SPEECH: Hypophonic. Spontaneous speech is mildly dysarthric without aphasia. Repetition is intact. INVOLUNTARY MOVEMENTS: None. Resting tremor is not observed during this encounter. PRONATOR DRIFT: None. LABORATORY DATA: Sodium 141, potassium 4.1, chloride 104, carbon dioxide 24, anion gap 17.1. BUN 31, creatinine 1.10 with estimated GFR 49. BUN to creatinine ratio 28, glucose 93, calcium 11.12, total bilirubin 0.4, AST 16, ALT 14, alkaline phosphatase 83. Total protein 8.0, albumin 3.8, globulin 4.2, albumin to globulin ratio 0.9. CBC with differential and platelets shows a white blood cell count of 5.88 with 57.0% neutrophils, 30.3% lymphocytes,11.6% monocytes, 0.7% eosinophils and 0.2% basophils. Hemoglobin and hematocrit are 12.2 and 34.7, respectively. Platelet count is 293,000. A urinalysis shows few transitional epithelial cells and moderate bacteria. ASSESSMENT AND PLAN: Ms. Sood is a 73-year-old right- hand0-dominant woman with past medical history as detailed, including dementia which was reportedly diagnosed 1 to 2 years ago followed by development of parkinsonian symptoms within 1 year of this diagnosis. Patient's neurological examination is significant for moderate disorientation, mask facies, hypophonia, increased tone in all 4 extremities with cogwheeling of the right arm, bradykinesia, segmental hypokinesis with finger and toe tapping bilaterally. The patient's laboratory data has been reviewed and is documented above, As detailed above, Ms. Sood has parkinsonian findings on her neurological examination. Her outpatient neurologist attributed these findings to treatment with Reglan. However, patient's reports these symptoms began long before the patient began treatment with Reglan. Furthermore, he reports no worsening of the patient's symptoms with Reglan. It is possible the patient has idiopathic Parkinson's disease. Given her multiple vascular risk factors, a diagnosis of vascular parkinsonism is possible as well. However, given history of dementia diagnosed within 1 year of the onset of parkinsonian symptoms, it is more likely the patient has dementia with Lewy bodies. This diagnosis was discussed in detail with the patient and her family members. The patient and her family members were made aware of treatment with pro-dopaminergic medications and/or medications for memory loss are often not beneficial in patients with dementia with Lewy bodies. RECOMMENDATIONS: 1. Thyroid-stimulating hormone, vitamin B12, RPR will be drawn. 2. MRI of the brain without contrast will be performed. 3. Treatment with Donepezil 10 mg by mouth at bedtime daily will be continued. 4. Ms. Sood will be prescribed carbidopa-levodopa 25-100 mg by mouth three times daily. This medication should improve the patient's parkinsonian symptoms. Furthermore, her response, or lack of response, may ultimately need lead as to her final diagnosis. 5. Defer treatment of the remaining medical comorbidities to the primary and other services following the patient. Thank you for this consultation. I will continue to follow this patient while she remains in the hospital. Time spent: 70 minutes. Job#: [id number] GH [email or web address]
--- NOTE | 2018-05-24 16:31 | Consultation ---
DATE OF CONSULTATION: May 24, 2018 REASON FOR CONSULTATION: Urinary tract infection. This is a very pleasant 73-year-old female who has history of dementia and recurrent UTI. She came to my office because she was not doing well. She is very weak, more than usual. She could not even leave the chair. The patient also felt really bad. She does have dementia, but she does communicate. The patient is known to have history of recurrent UTIs. She was on an oral antibiotic, but while she was taking antibiotic she was getting progressively worse overall, feeling chills and frequency. I was definitely concerned about sepsis. The patient was sent to the hospital to be admitted. Blood cultures and urine cultures were ordered. The patient is just not feeling well, very weak, cannot even leave the chair, and that is not usually the case, usually she can stand up and walk around. The patient is also having a lot of frequency and urgency, even though she was taking oral antibiotic. She has been on Cipro, Keflex and Ceftin. The patient is being admitted. Infectious disease was consulted. PAST MEDICAL HISTORY: Dementia, which is getting progressively worse, UTI, recurrent. ALLERGIES: PENICILLIN, CIPRO, but she is okay with cephalosporin and she is okay with Cipro. SOCIAL HISTORY: No smoking, drug abuse or alcohol abuse. REVIEW OF SYSTEMS: She is just weak, especially she cannot even stand up. She is sleepier more than usual, according to the family. Feeling feverish, but no specific temperature has been taken. Also a lot of urgency and frequency. MEDICATIONS: Alprazolam, estradiol, Lopid, levothyroxine, lipase, metformin, nifedipine. LABORATORY DATA: White count 5.8, hemoglobin 12.2, sodium 141, potassium 4.1, creatinine 1.1. Her urine culture is showing gram negative rods. PHYSICAL EXAMINATION GENERAL: Alert, oriented, does not seem to be in any acute distress. VITAL SIGNS: Stable, currently afebrile. HEENT: Not icteric. NECK: Supple. CHEST: Clear bilaterally. HEART: S1 and S2, no murmur. ABDOMEN: Soft. Bowel sounds present. No tenderness. EXTREMITIES: No edema. IMPRESSION AND PLAN 1. Weakness, concerned about worsening mental status, concerned about sepsis versus urinary tract infection versus other. Obtain urine culture and blood culture. 2. Concerned about deterioration in her dementia. Concerned about component of Parkinson disease, if this is a new diagnosis. Will ask neurology to see her. 3. The patient is debilitated, may benefit from rehab evaluation. 4. Will recheck CBC, recheck chem panel. 5. Will follow with you. Job#: [id number] GH
[2018-05-24] MEDS: DONEPEZIL HCL 5 MG TAB PO SCH (21:11)
[2018-05-25] VITALS (8 sets, daily range): BP systolic 112–168; BP diastolic 66–96
[2018-05-25] MEDS: CARBIDOPA/LEVODOPA 25/100 TAB PO SCH ×3 (09:10→21:28)
[2018-05-25] MEDS ORDERED: MEROPENEM 500MG 500 MG in SODIUM CHLORIDE 0.9% 50ML 50 ML IV SCH ×2 (09:15→17:00)
[2018-05-25] MEDS ORDERED: MEROPENEM 500 MG VIAL IV SCH (09:30)
[2018-05-25] MEDS ORDERED: PROMETHAZINE HCL 25 MG TAB PO PRN (11:00)
[2018-05-25] MEDS: LOSARTAN POTASSIUM 100 MG TAB PO SCH ×2 (11:48→16:32)
[2018-05-25] MEDS: NIFEDIPINE CR 30 MG TAB PO SCH ×2 (11:48→16:34)
[2018-05-25] MEDS: SODIUM CHLORIDE 0.45% 1,000 ML IV SCH (11:49)
[2018-05-25] MEDS: MEROPENEM 500 MG VIAL IV SCH (16:32)
[2018-05-25] MEDS: ENOXAPARIN 30 MG/0.3 ML SYR SC SCH (16:34)
--- NOTE | 2018-05-25 17:04 | History and Physical ---
PCP: Dr. Leo Dangelo. CONSULTING PHYSICIANS 1. Dr. Leeanna Kirkland. 2. Dr. Dorinda Baird. CHIEF COMPLAINT: Recurrent urinary tract infection and worsening neurological status. HISTORY OF PRESENT ILLNESS: A 73-year-old female with ongoing urinary bladder infection for years, now due to neurogenic urinary bladder with urinary retention. Patient was previously on prophylaxis. This time, she came in because her mental status worsened. The patient has Parkinson-like symptoms. The patient is admitted. She has been seen by Dr. Leeanna Kirkland for evaluation. The patient is otherwise stable, not in any agitation or any distress. PAST MEDICAL HISTORY: Recurrent urinary tract infection and now with multi-resistant bacteria with neurogenic urinary bladder, baseline dementia with Parkinson-like symptoms, gastroparesis, osteoarthritis, dyslipidemia, hypothyroidism, hypertension, and diabetes type 2. PAST SURGICAL HISTORY: Cholecystectomy, urinary bladder suspension, partial hysterectomy, bilateral hip partial replacement. SOCIAL HISTORY: Patient does not smoke or use alcohol. She lives at home with her family. ALLERGIES: TO AMOXICILLIN, AZITHROMYCIN, HYDROCODONE, AND STATIN DRUGS. REVIEW OF SYSTEMS: Limited. PHYSICAL EXAMINATION VITAL SIGNS: Temperature is 98, blood pressure 160/94, pulse rate is 109, and respirations 20. GENERAL: The patient is not in acute distress. She is awake. HEENT: Normocephalic, atraumatic. Anicteric. NECK: Supple grossly. PULMONARY: Diminished breath sounds. CARDIOVASCULAR: S1 and S2. Regular rate and rhythm. ABDOMEN: Soft, no distention. EXTREMITIES: No gross cyanosis or edema. NEUROLOGIC: There is no gross focal deficit. The patient has baseline dementia, however. She is very weak in general. LABORATORY DATA: Sodium is 141, potassium 4.1, chloride 104, bicarb 24, BUN 31, creatinine 1.1, and glucose is 93. WBC is 5.8, hemoglobin 12.2, hematocrit 34.7, and platelets are 293. IMPRESSION 1. Parkinson-like syndrome. 2. Recurrent urinary tract infection with multi-drug resistant bacteria. 3. Progressive dementia with Parkinson-like symptoms. 4. Dehydration. PLAN: Rehydration. Continue with home medication. PT, OT. Patient most likely is not a candidate for acute rehab. She may need SQ. Repeat lab work. Turn the patient for skin decubitus prevention and DVT prophylaxis. Job#: [id number] FRANC cc:Dr. Leo Dangelo
[2018-05-25] MEDS: ALPRAZOLAM 0.5 MG TAB PO SCH (21:28)
[2018-05-25] MEDS: TRAZODONE HCL 50 MG TAB PO SCH (21:29)
[2018-05-25] MEDS: DONEPEZIL HCL 5 MG TAB PO SCH (21:29)
[2018-05-26] VITALS (7 sets, daily range): BP systolic 114–140; BP diastolic 64–72
[2018-05-26] MEDS: SODIUM CHLORIDE 0.45% 1,000 ML IV SCH (00:35)
[2018-05-26] MEDS: SOD CHL 0.45%/POT CHL 20MEQ 1,000 ML IV SCH ×2 (02:15→09:48)
[2018-05-26] MEDS: MEROPENEM 500 MG VIAL IV SCH ×2 (04:15→17:00)
[2018-05-26 06:38] LABS: BASOPHILS % 0.1 % (0.0-1.0); EOSINOPHILS % 0.4 % (0.0-6.0); HEMATOCRIT 31.6 % (34.2-44.1); MEAN CORPUSCULAR HEMOGLOBIN 31.7 pg (28-32); MEAN CORPUSCULAR HGB CONC 34.8 g/dL (31-35); MEAN CORPUSCULAR VOLUME 91.1 fL (81-99); MONOCYTES # (AUTO) 0.7 (0.2-0.8); MONOCYTES % 9.7 % (4.4-11.3); NEUTROPHILS # (AUTO) 4.1 (2.1-6.9); NEUTROPHILS % 60.7 % (38.7-80.0); PLATELET COUNT 236 x10e3/uL (140-360); RED BLOOD COUNT 3.47 x10e6/uL (3.6-5.1); RED CELL DISTRIBUTION WIDTH 12.6 % (11.7-14.4)
[2018-05-26 07:01] LABS: ANION GAP 13.1 mmol/L (8-16); BLOOD UREA NITROGEN 19 mg/dL (7-26); BUN/CREATININE RATIO 26 (6-25); CALCIUM 9.8 mg/dL (8.4-10.2); CARBON DIOXIDE 25 mmol/L (22-29); CHLORIDE 109 mmol/L (98-107); CREATININE, SERUM 0.74 mg/dL (0.57-1.11); EST GLOMERULAR FILTRATION RATE > 60 ML/MIN (60-); GLUCOSE 91 mg/dL (74-118); POTASSIUM 3.1 mmol/L (3.5-5.1); SODIUM 144 mmol/L (136-145)
[2018-05-26] MEDS: PANTOPRAZOLE SOD 40 MG TABEC PO SCH (08:32)
[2018-05-26] MEDS: NIFEDIPINE CR 30 MG TAB PO SCH ×2 (08:33→17:01)
[2018-05-26] MEDS: LOSARTAN POTASSIUM 100 MG TAB PO SCH ×2 (08:33→17:00)
[2018-05-26] MEDS: ESTRADIOL 1 MG TAB PO SCH (08:33)
[2018-05-26] MEDS: LEVOTHYROXINE SODIUM 50 MCG TAB PO SCH (08:34)
[2018-05-26] MEDS: CARBIDOPA/LEVODOPA 25/100 TAB PO SCH ×3 (08:34→21:28)
[2018-05-26] MEDS: MYBETRIQ PO SCH (08:52)
[2018-05-26] MEDS: ENOXAPARIN 30 MG/0.3 ML SYR SC SCH (17:01)
[2018-05-26] MEDS: DONEPEZIL HCL 5 MG TAB PO SCH (21:25)
[2018-05-26] MEDS: TRAZODONE HCL 50 MG TAB PO SCH (21:26)
[2018-05-26] MEDS: ALPRAZOLAM 0.5 MG TAB PO SCH (21:28)
[2018-05-27] VITALS (7 sets, daily range): BP systolic 119–142; BP diastolic 59–88
[2018-05-27] MEDS: MEROPENEM 500 MG VIAL IV SCH ×2 (04:45→17:48)
[2018-05-27 06:10] LABS: ANION GAP 14.8 mmol/L (8-16); BLOOD UREA NITROGEN 13 mg/dL (7-26); BUN/CREATININE RATIO 18 (6-25); CALCIUM 10.3 mg/dL (8.4-10.2); CARBON DIOXIDE 25 mmol/L (22-29); CHLORIDE 107 mmol/L (98-107); CREATININE, SERUM 0.73 mg/dL (0.57-1.11); EST GLOMERULAR FILTRATION RATE > 60 ML/MIN (60-); GLUCOSE 106 mg/dL (74-118); POTASSIUM 3.8 mmol/L (3.5-5.1); SODIUM 143 mmol/L (136-145)
[2018-05-27 06:47] LABS: MAGNESIUM 1.8 MG/DL (1.3-2.1); PHOSPHORUS 2.3 MG/DL (2.3-4.7)
[2018-05-27] MEDS: MYBETRIQ PO SCH (09:00)
[2018-05-27] MEDS: PANTOPRAZOLE SOD 40 MG TABEC PO SCH (12:40)
[2018-05-27] MEDS: LOSARTAN POTASSIUM 100 MG TAB PO SCH ×2 (12:41→17:48)
[2018-05-27] MEDS: ESTRADIOL 1 MG TAB PO SCH (12:41)
[2018-05-27] MEDS: LEVOTHYROXINE SODIUM 50 MCG TAB PO SCH (12:42)
[2018-05-27] MEDS: CARBIDOPA/LEVODOPA 25/100 TAB PO SCH ×3 (12:42→20:48)
[2018-05-27] MEDS: NIFEDIPINE CR 30 MG TAB PO SCH ×2 (12:42→17:00)
[2018-05-27] MEDS: ENOXAPARIN 30 MG/0.3 ML SYR SC SCH ×2 (17:49→17:56)
[2018-05-27] MEDS: DONEPEZIL HCL 5 MG TAB PO SCH (20:48)
[2018-05-28] VITALS (7 sets, daily range): BP systolic 129–163; BP diastolic 66–85
[2018-05-28] MEDS: MEROPENEM 500 MG VIAL IV SCH ×2 (05:09→17:00)
[2018-05-28 06:27] LABS: BASOPHILS % 0.2 % (0.0-1.0); EOSINOPHILS % 0.6 % (0.0-6.0); HEMATOCRIT 31.6 % (34.2-44.1); HEMOGLOBIN 10.7 g/dL (12.0-16.0); LYMPHOCYTES # (AUTO) 1.2 (1.0-3.2); LYMPHOCYTES % 17.7 % (18.0-39.1); MEAN CORPUSCULAR HEMOGLOBIN 31.6 pg (28-32); MEAN CORPUSCULAR HGB CONC 33.9 g/dL (31-35); MEAN CORPUSCULAR VOLUME 93.2 fL (81-99); MONOCYTES # (AUTO) 0.7 (0.2-0.8); MONOCYTES % 10.9 % (4.4-11.3); NEUTROPHILS # (AUTO) 4.6 (2.1-6.9); NEUTROPHILS % 70.4 % (38.7-80.0); PLATELET COUNT 257 x10e3/uL (140-360); RED BLOOD COUNT 3.39 x10e6/uL (3.6-5.1); RED CELL DISTRIBUTION WIDTH 12.2 % (11.7-14.4)
[2018-05-28 06:52] LABS: ALANINE AMINOTRANSFERASE < 6 IU/L (0-55); ALBUMIN 2.8 g/dL (3.5-5.0); ALBUMIN/GLOBULIN RATIO 0.8 (0.8-2.0); ALKALINE PHOSPHATASE 59 IU/L (40-150); ANION GAP 12.6 mmol/L (8-16); BLOOD UREA NITROGEN 16 mg/dL (7-26); BUN/CREATININE RATIO 21 (6-25); CALCIUM 9.8 mg/dL (8.4-10.2); CARBON DIOXIDE 27 mmol/L (22-29); CHLORIDE 104 mmol/L (98-107); CREATININE, SERUM 0.76 mg/dL (0.57-1.11); EST GLOMERULAR FILTRATION RATE > 60 ML/MIN (60-); GLUCOSE 109 mg/dL (74-118); POTASSIUM 3.6 mmol/L (3.5-5.1); SODIUM 140 mmol/L (136-145)
[2018-05-28] MEDS: PANTOPRAZOLE SOD 40 MG TABEC PO SCH (07:30)
[2018-05-28] MEDS: LOSARTAN POTASSIUM 100 MG TAB PO SCH ×2 (08:30→18:09)
[2018-05-28] MEDS: MYBETRIQ PO SCH (08:31)
[2018-05-28] MEDS: ESTRADIOL 1 MG TAB PO SCH (08:31)
[2018-05-28] MEDS: NIFEDIPINE CR 30 MG TAB PO SCH ×2 (08:31→17:00)
[2018-05-28] MEDS: CARBIDOPA/LEVODOPA 25/100 TAB PO SCH ×2 (08:31→15:00)
[2018-05-28] MEDS: LEVOTHYROXINE SODIUM 50 MCG TAB PO SCH (08:31)
--- NOTE | 2018-05-29 13:41 | Discharge Summary ---
CORRECTION OFFICER REFORMATORY: Dr. Dorinda Baird and Dr. Kirkland. FINAL DIAGNOSES 1. Complicated urinary tract infection associated with neurogenic urinary bladder. 2. Baseline dementia with acute delirium secondary to complicated urinary tract infection. 3. Status post dehydration. 4. Dementia with progressive decline. A 73-year-old female came in more lethargic and altered mental status. The patient was having difficulty with ambulation as well. She does have dementia with progressive decline. She does have neurogenic urinary bladder. Patient has been seen by [facility] urologist [facility] The patient had episodic urinary retention. She was treated by Dr. Baird for a complicated urinary tract infection. The patient received physical therapy. She did receive antibiotics as well. Dr. Kirkland saw the patient and evaluate the patient for her overall neurostatus decline. Patient has significant sedation from her home medications that was subsequently adjusted. Home health has been arranged. The patient will go home with antibiotics per Dr. Baird. She is more awake and alert and following commands at this time. Her dehydration has resolved. The patient will continue with her care at home. Discussed with the patient's spouse, Mr. Sood as well, and they will continue to monitor the patient and follow up with her family physician in approximately 1 week. Patient is stable and discharged home today. Continue with care at home. Please review the medication discharge list. Job#: [id number] CAMPOS
== END 2018-05-28 19:15 | disposition home or self-care (01) | DRG 690 ==
LOC: MED/SURG2 18:52
PROVIDERS: ADMIT Internal Medicine; ATTEND Internal Medicine
DX: N39.0 Urinary tract infection, site not specified (principal); F05 Delirium due to known physiological condition; E86.0 Dehydration; Z16.24 Resistance to multiple antibiotics; G31.83 Neurocognitive disorder with Lewy bodies; F02.80 Dementia in other diseases classified elsewhere, unspecified severity, without behavioral disturbance, psychotic disturbance, mood disturbance, and anxiety; G20 Parkinson's disease; Z88.1 Allergy status to other antibiotic agents; Z88.0 Allergy status to penicillin; B96.20 Unspecified Escherichia coli [E. coli] as the cause of diseases classified elsewhere; R33.9 Retention of urine, unspecified; R53.81 Other malaise; N31.9 Neuromuscular dysfunction of bladder, unspecified
CPT/HCPCS: 36415; 70551; 80048; 80053; 81001; 82607; 82948; 83519; 83735; 83970; 84100; 84443; 85025; 86140; 86592; 87086; 87186; 97139; J0696; J1650; J2185; J7030